=== PATIENT | female | born 1955 | race Caucasian/White ===

== ENCOUNTER 2018-01-10 11:26 | Observation (INO) | payer OTHER ==
[~2018-01-10 11:26] MED LIST: CEFTRIAXONE/SWI 1gm 1 GM/10 ML SYR IVP SCH
[2018-01-10] MEDS ORDERED: IPRATROPIUM BROM 0.5MG/2.5ML ONE ×2 (14:08→19:17)
[2018-01-10] MEDS ORDERED: ALBUTEROL 2.5 MG/3 ML NEB SOL ONE ×2 (14:08→19:17)
[2018-01-10] MEDS ORDERED: predniSONE 20 MG TAB ONE (14:41)
--- NOTE | 2018-01-10 15:00 | RAD REPORT ---
EXAM DESCRIPTION: RAD - Chest Single View - 01/10/2018 2:48 pm CLINICAL HISTORY: Cough COMPARISON: 09/29/2010 FINDINGS: Portable technique limits examination quality. Mild interstitial pulmonary edema is noted. The heart is mildly prominent size. No displaced fracture s. IMPRESSION: Mild CHF/ volume overload.
[2018-01-10 15:29] LABS: Absolute Lymphocytes (CBC) 1.3 K/uL (0.7-4.9); Absolute Monocytes 0.5 K/uL (0.1-1.3); Absolute Neutrophil 3.2 K/uL (1.8-8.0); Basophils % 0.7 % (0-1.3); Eosinophils % 0.7 % (0-4.4); Hematocrit 36.2 % (36.0-45.0); Lymphocytes % 25.5 % (15.3-44.8); MCH 26.8 pg (27.0-35.0); MCV 84.7 fL (80-100); MPV 7.8 fL (7.6-11.3); Monocytes % 9.7 % (3.3-12.3); RBC Red Blood Cell Count 4.27 M/uL (3.86-4.86)
--- NOTE | 2018-01-10 15:37 | EKG ---
Test Date: 2018-01-10 Test Time: 15:30:54 [place] Worker: PEPE MEASUREMENT RESULTS: Intervals: Rate: 98 NC: 136 QRSD: 136 QT: 366 QTc: 467 [place]: P: 63 NC: 136 QRS: -2 T: 18 INTERPRETIVE STATEMENTS: Normal sinus rhythm Right bundle branch block Abnormal ECG No previous ECG available for comparison Electronically Signed On 01-10-18 15:36:19 CDT by Curt López
[2018-01-10] MEDS ORDERED: FUROSEMIDE 20 MG/ 2ML VIAL ONE (15:38)
[2018-01-10 15:44] LABS: Protime INR 1.08
[2018-01-10 16:06] LABS: Potassium 4.3 mEq/L (3.6-5.0)
--- NOTE | 2018-01-10 16:20 | EDPHYS ---
Physician Documentation [facility] Name: Jackie Menezes Age: 62 yrs Sex: Female : 1955 Arrival Date: 01/10/2018 Time: 11:27 Bed 28 Private MD: ED Physician Jayesh Gil HPI: 01/10 17:02 This 62 yrs old Female presents to ER via Ambulatory with complaints of LOW gs OXYGEN (92). 17:02 The patient has shortness of breath at rest. Onset: The symptoms/episode began/occurred gs 5 day(s) ago, and became worse and became persistent. Duration: The symptoms are continuous. The patient's shortness of breath is aggravated by exertion. Associated signs and symptoms: Pertinent positives: non-productive cough, Pertinent negatives: chest pain, fever. Severity of symptoms: At their worst the symptoms were severe in the emergency department the symptoms are unchanged. The patient has not experienced similar symptoms in the past. The patient has not recently seen a physician. Historical: - Allergies: 11:53 No Known Allergies; lk1 - PMHx: 11:53 Diabetes - NIDDM; Hypertension; High Cholesterol; lk1 - PSHx: 11:53 Gastric Bypass; Hysterectomy; lk1 - Immunization history:: Adult Immunizations up to date. - Social history:: Smoking status: Patient uses tobacco products, smokes one pack cigarettes per day. ROS: 17:02 All other systems are negative. gs Exam: 15:34 ECG was reviewed by the Attending Physician. gs 17:02 Head/Face: Normocephalic, atraumatic. Eyes: Pupils equal round and reactive to light, gs extra-ocular motions intact. Lids and lashes normal. Conjunctiva and sclera are non-icteric and not injected. Cornea within normal limits. Periorbital areas with no swelling, redness, or edema. ENT: Nares patent. No nasal discharge, no septal abnormalities noted. Tympanic membranes are normal and external auditory canals are clear. Oropharynx with no redness, swelling, or masses, exudates, or evidence of obstruction, uvula midline. Mucous membranes moist. Neck: Trachea midline, no thyromegaly or masses palpated, and no cervical lymphadenopathy. Supple, full range of motion without nuchal rigidity, or vertebral point tenderness. No Meningismus. Chest/axilla: Normal chest wall appearance and motion. Nontender with no deformity. No lesions are appreciated. 17:02 Abdomen/GI: Soft, non-tender, with normal bowel sounds. No distension or tympany. No guarding or rebound. No evidence of tenderness throughout. Back: No spinal tenderness. No costovertebral tenderness. Full range of motion. Skin: Warm, dry with normal turgor. Normal color with no rashes, no lesions, and no evidence of cellulitis. MS/ Extremity: Pulses equal, no cyanosis. Neurovascular intact. Full, normal range of motion. Neuro: Awake and alert, GCS 15, oriented to person, place, time, and situation. Cranial nerves II-XII grossly intact. Motor strength 5/5 in all extremities. Sensory grossly intact. Cerebellar exam normal. Normal gait. 17:02 Constitutional: The patient appears alert, awake. 17:02 Cardiovascular: Rate: tachycardic, Rhythm: regular, Pulses: no pulse deficits are appreciated. 17:02 Respiratory: mild respiratory distress is noted, Respirations: tachypnea, Breath sounds: rhonchi, that are severe, are heard diffusely. 17:02 Musculoskeletal/extremity: Circulation is intact in all extremities. Edema, is not appreciated. Vital Signs: 11:54 BP 133 / 80; Pulse 102; Resp 20; Temp 97.2(TE); Pulse Ox 92% on R/A; Weight 142.43 kg lk1 (R); Height 5 ft. 8 in. (172.72 cm) (R); Pain 0/10; 13:55 BP 155 / 87; Pulse 101; Resp 20; Pulse Ox 89% on R/A; tl3 13:58 Pulse Ox 96% on 2 lpm NC; tl3 14:29 BP 128 / 78; Pulse 100; Resp 18; Pulse Ox 99% on 8% Nebulizer Mask; tl3 15:31 BP 135 / 80; Pulse 100; Resp 24; Pulse Ox 97% on 2 lpm NC; tl3 16:03 BP 145 / 70; Pulse 103; Resp 22; Pulse Ox 96% on 2 lpm NC; tl3 18:01 BP 139 / 96; Pulse 106; Resp 22; Pulse Ox 94% on 2 lpm NC; tl3 11:54 Body Mass Index 47.74 (142.43 kg, 172.72 cm) [facility] MDM: 14:05 Patient medically screened. gs 17:02 Differential diagnosis: CHF exacerbation, Myocardial Infarction pneumonia, pulmonary gs edema, Pulmonary Embolism. Data reviewed: vital signs, nurses notes, and as a result, I will admit patient. 01/10 14:29 Order name: Basic Metabolic Panel; Complete Time: 16:38 01/10 14:29 Order name: BNP; Complete Time: 16:38 01/10 14:29 Order name: CBC with Diff; Complete Time: 15:57 01/10 14:29 Order name: PT-INR; Complete Time: 15:57 01/10 14:29 Order name: Troponin (emerg Dept Use Only); Complete Time: 15:57 01/10 18:07 Order name: Urine Dipstick--Ancillary (enter results) 01/10 14:29 Order name: XRAY Chest (1 view); Complete Time: 15:10 01/10 16:12 Order name: CT Chest For PE Angio 01/10 17:10 Order name: CT; Complete Time: 19:01 EDDC 01/10 18:21 Order name: Urine Dipstick-Ancillary; Complete Time: 19:01 [facility] 01/10 14:29 Order name: EKG; Complete Time: 14:30 01/10 14:29 Order name: Cardiac monitoring; Complete Time: 14:30 01/10 14:29 Order name: EKG - Nurse/Tech; Complete Time: 15:30 01/10 14:29 Order name: IV Saline Lock; Complete Time: 15:28 01/10 14:29 Order name: Labs collected and sent; Complete Time: 15:28 01/10 14:29 Order name: O2 Per Protocol; Complete Time: 14:30 01/10 14:29 Order name: O2 Sat Monitoring; Complete Time: 15:28 01/10 14:29 Order name: Urine Dipstick-Ancillary (obtain specimen); Complete Time: 15:52 gs EC:34 Rate is 98 beats/min. Rhythm is regular. NH interval is normal. QRS interval is gs prolonged. No Q waves. T waves are Normal. No ST changes noted. Clinical impression: Abnormal EKG without significant change. Interpreted by me. Administered Medications: 14:15 Drug: Albuterol 2.5 mg Route: Inhalation; tl3 15:29 Follow up: Response: No adverse reaction tl3 14:15 Drug: AtroVENT Aerosol 0.5 mg Route: Inhalation; tl3 15:28 Drug: predniSONE 40 mg Route: PO; tl3 15:29 Follow up: Response: No adverse reaction tl3 15:51 Drug: Lasix 20 mg Route: IVP; Site: left wrist; tl3 16:00 Follow up: Response: No adverse reaction tl3 Disposition: 17:02 Critical Care:. Disposition: 01/10/18 16:20 Hospitalization ordered by Austen Gerard for Inpatient Admission. Preliminary diagnosis are Hypoxemia, Systolic (congestive) heart failure. - Bed requested for Telemetry/MedSurg (Inpatient). - Status is Inpatient Admission. tl3 - Condition is Stable. - Problem is new. - Symptoms have improved. UTI on Admission? No Critical care time excluding procedures: 17:02 Critical care time: Bedside Care: 10 minutes, Consultation: 10 minutes, Family gs Intervention: 10 minutes. Total time: 30 minutes Signatures: Dispatcher [employer] EDMS Graciela Bender Sabrina Knapp RN RN lk1 Jayesh Gil MD MD Claudia Garcia RN RN tl3 Corrections: (The following items were deleted from the chart) 16:03 15:58 Labs - recollect needed ordered. bd tl3 16:29 16:20 Hospitalization Ordered by Meaghan Brown MD for Inpatient Admission. Preliminary gs diagnosis is Hypoxemia; Systolic (congestive) heart failure. Bed requested for Telemetry/MedSurg (Inpatient). Status is Inpatient Admission. Condition is Stable. Problem is new. Symptoms have improved. UTI on Admission? No. gs 17:42 16:29 01/10/2018 16:20 Hospitalization Ordered by Austen Gerard MD for Inpatient bd Admission. Preliminary diagnosis is Hypoxemia; Systolic (congestive) heart failure. Bed requested for Telemetry/MedSurg (Inpatient). Status is Inpatient Admission. Condition is Stable. Problem is new. Symptoms have improved. UTI on Admission? No. gs 19:46 17:42 01/10/2018 16:20 Hospitalization Ordered by Austen Gerard MD for Inpatient tl3 Admission. Preliminary diagnosis is Hypoxemia; Systolic (congestive) heart failure. Bed requested for Telemetry/MedSurg (Inpatient). Status is Inpatient Admission. Condition is Stable. Problem is new. Symptoms have improved. UTI on Admission? No. bd
--- NOTE | 2018-01-10 16:20 | ER ---
Nurse's Notes [facility] Name: Jackie Menezes Age: 62 yrs Sex: Female : 1955 Arrival Date: 01/10/2018 Time: 11:27 Bed 28 Private MD: Diagnosis: Hypoxemia;Systolic (congestive) heart failure Presentation: 01/10 11:51 Presenting complaint: Patient states: I have chest congestion and its feeling hard to lk1 breath. It's been starting about a week, but gotten worse in the last 2 days. Transition of care: patient was not received from another setting of care. Onset of symptoms was January 05, 2018. Initial Sepsis Screen: Does the patient meet any 2 criteria? No. Patient's initial sepsis screen is negative. Does the patient have a suspected source of infection? No. Patient's initial sepsis screen is negative. Care prior to arrival: None. 11:51 Method Of Arrival: Ambulatory lk1 11:51 Acuity: ROXY 3 lk1 Triage Assessment: 11:53 General: Appears in no apparent distress. Behavior is calm, cooperative, appropriate lk1 for age. Pain: Denies pain. Respiratory: Reports shortness of breath on exertion cough that is productive, yellow green sputum x 2 days Airway Respiratory effort is even, unlabored, Respiratory pattern is regular, symmetrical. Historical: - Allergies: 11:53 No Known Allergies; lk1 - PMHx: 11:53 Diabetes - NIDDM; Hypertension; High Cholesterol; lk1 - PSHx: 11:53 Gastric Bypass; Hysterectomy; lk1 - Immunization history:: Adult Immunizations up to date. - Social history:: Smoking status: Patient uses tobacco products, smokes one pack cigarettes per day. Screenin:58 Abuse screen: Denies threats or abuse. Nutritional screening: No deficits noted. tl3 Tuberculosis screening: No symptoms or risk factors identified. Fall Risk None identified. Assessment: 13:55 General: Appears uncomfortable, obese, well groomed, well developed, well nourished, tl3 Behavior is calm, cooperative, appropriate for age. Pain: Denies pain. Neuro: Level of Consciousness is awake, alert, obeys commands, Oriented to person, place, time, situation, Appropriate for age. Cardiovascular: Heart tones S1 S2 present Patient's skin is warm and dry. Respiratory: Airway is patent Trachea midline Respiratory effort is labored, Respiratory pattern is symmetrical, Breath sounds are diminished Breath sounds with wheezes in left lower lobe, right lower lobe, left posterior lower lobe, right posterior middle lobe and right posterior lower lobe. Respiratory: Reports shortness of breath at rest on exertion cough that is productive. Respiratory: Reports SOB for a couple of days. GI: No signs and/or symptoms were reported involving the gastrointestinal system. : No signs and/or symptoms were reported regarding the genitourinary system. EENT: No signs and/or symptoms were reported regarding the EENT system. Derm: No signs and/or symptoms reported regarding the dermatologic system. Musculoskeletal: No signs and/or symptoms reported regarding the musculoskeletal system. 14:19 Reassessment: Dr Gil at bedside for assessment. tl3 16:03 Reassessment: Patient appears in no apparent distress at this time. No changes from tl3 previously documented assessment. Patient and/or family updated on plan of care and expected duration. Pain level reassessed. Patient is alert, oriented x 3, equal unlabored respirations, skin warm/dry/pink. pt dropped down to 88 % on room air after completion of neb, o2 at 2 L/M reapplied O2 sat increased to 95%. 18:01 Reassessment: Patient appears in no apparent distress at this time. No changes from tl3 previously documented assessment. Patient and/or family updated on plan of care and expected duration. Pain level reassessed. Patient is alert, oriented x 3, equal unlabored respirations, skin warm/dry/pink. pt ambulated to restroom, urine obtained, pt extremely winded after walking to and from the restroom., O2 Sats dropped to 85% , O2 replaced and sats went up to 93-95%. Vital Signs: 11:54 BP 133 / 80; Pulse 102; Resp 20; Temp 97.2(TE); Pulse Ox 92% on R/A; Weight 142.43 kg lk1 (R); Height 5 ft. 8 in. (172.72 cm) (R); Pain 0/10; 13:55 BP 155 / 87; Pulse 101; Resp 20; Pulse Ox 89% on R/A; tl3 13:58 Pulse Ox 96% on 2 lpm NC; tl3 14:29 BP 128 / 78; Pulse 100; Resp 18; Pulse Ox 99% on 8% Nebulizer Mask; tl3 15:31 BP 135 / 80; Pulse 100; Resp 24; Pulse Ox 97% on 2 lpm NC; tl3 16:03 BP 145 / 70; Pulse 103; Resp 22; Pulse Ox 96% on 2 lpm NC; tl3 18:01 BP 139 / 96; Pulse 106; Resp 22; Pulse Ox 94% on 2 lpm NC; tl3 11:54 Body Mass Index 47.74 (142.43 kg, 172.72 cm) lk1 ED Course: 11:27 Patient arrived in ED. sb2 11:52 Triage completed. lk1 11:56 Arm band placed on right wrist. lk1 13:36 Jayesh Gil MD is Attending Physician. gs 13:41 Claudia Garcia, RAQUEL is Primary Nurse. tl3 13:58 Patient has correct armband on for positive identification. Placed in gown. Bed in low tl3 position. Call light in reach. Side rails up X 1. Adult w/ patient. Pulse ox on. NIBP on. 13:58 No provider procedures requiring assistance completed. Initial Neb Treatment Given as tl3 ordered Patient was instructed and evaluated on procedure. 14:42 X-ray(s) taken. tl3 14:46 X-ray completed. Portable x-ray completed in exam room. Patient tolerated procedure jb2 well. 14:47 XRAY Chest (1 view) In Process Unspecified. EDMS 15:30 Inserted saline lock: 20 gauge in left wrist, using aseptic technique. Blood collected. tl3 15:38 EKG done, by property technician. reviewed by Jayesh Gil MD. dt2 16:[address] sw 16:19 Meaghan Brown MD is Hospitalizing Provider. gs 16:29 Austen Gerard MD is Hospitalizing Provider. gs 16:54 CT completed. Patient tolerated procedure well. Patient moved back from CT. sw 19:29 Patient admitted, IV remains in place. tl3 19:46 Urine Dipstick--Ancillary (enter results) Sent. tl3 19:46 CT Chest For PE Angio Sent. tl3 Administered Medications: 14:15 Drug: Albuterol 2.5 mg Route: Inhalation; tl3 15:29 Follow up: Response: No adverse reaction tl3 14:15 Drug: AtroVENT Aerosol 0.5 mg Route: Inhalation; tl3 15:28 Drug: predniSONE 40 mg Route: PO; tl3 15:29 Follow up: Response: No adverse reaction tl3 15:51 Drug: Lasix 20 mg Route: IVP; Site: left wrist; tl3 16:00 Follow up: Response: No adverse reaction tl3 Outcome: 16:20 Decision to Hospitalize by Provider. 19:28 Admitted to Med/surg accompanied by tech, via wheelchair, with chart, Report called to tl3 Lashay Nix RN 19:28 Condition: stable 19:28 Instructed on the need for admit, Demonstrated understanding of instructions. 19:46 Patient left the ED. tl3 Signatures: Dispatcher [employer] EDMS Eudard Murry jbKat Au Leah, RN RN lk1 Jayesh Gil MD MD Patricia Peraza2 Claudia Garcia RN RN tl3 Brianna Gaffney2
[2018-01-10] MEDS ORDERED: ACETAMINOPHEN 500 MG TAB PO PRN (16:51)
[2018-01-10] MEDS ORDERED: ONDANSETRON 4 MG/2 ML VIAL IV PRN (16:51)
[2018-01-10] MEDS ORDERED: D50W 25 GM/50 ML SYRINGE IV PRN (16:54)
[2018-01-10] MEDS ORDERED: GLUCAGON 1 MG/VIAL IM PRN (16:54)
--- NOTE | 2018-01-10 17:09 | RAD REPORT ---
EXAM DESCRIPTION: CT - Chest For Pe Angio - 01/10/2018 4:54 pm CLINICAL HISTORY: Chest pain and shortness of breath x2 weeks COMPARISON: None. TECHNIQUE: Dynamically enhanced axial 3 mm thick images of the chest were obtained during administra tion of <100> mL Isovue 370 IV contrast. Coronal and oblique reconstruction images were generated and reviewed. Exam utilizes a protocol for optimal evaluation of pulmonary arterial tree. All CT scans are performed using dose optimization technique as appropriate and may include automated exposure control or mA/KV adjustment according to patient size. FINDINGS: The opacification of pulmonary arteries is suboptimal. A pulmonary embolus is not seen. A thoracic aortic aneurysm is not noted. A pleural effusion is not seen. A pericardial effusion is not seen. Mild ground-glass opacities are present within the upper lobes bilaterally. Mild to moderate tree-in- bud opacities within the lingula are seen. Mild bilateral hilar and mediastinal lymphadenopathy is present A mucus plug is present within the trachea IMPRESSION: No gross evidence for a pulmonary lymphadenopathy is present. Mild ground-glass opacities within the upper lobes and a mild to moderate tree-in-bud opacities withi n the lingula likely indicating an atypical infection Mucus plug within the trachea Mild hilar and mediastinal lymphadenopathy most likely is reactive in nature. Follow up CT in 3 month s is recommended to assess stability/resolution
[2018-01-10 18:20] LABS: Urine Blood NEGATIVE (NEG); Urine Glucose NEGATIVE (NEG); Urine Protein NEGATIVE (NEG); Urine Specific Gravity <1.005 (1.005-1.030); Urine pH 5.5 (5.0-7.0)
[2018-01-10] MEDS ORDERED: NA CHLORIDE 0.9% 250 ML ONE (19:51)
[2018-01-10] MEDS: IPRATROPIUM BROM 0.5MG/2.5ML NEB SCH (19:57)
[2018-01-10] MEDS: ALBUTEROL 2.5 MG/3 ML NEB SOL NEB SCH (19:57)
[2018-01-10] MEDS: INSULIN -REGULAR HUMAN 50 UNIT/0.5 ML ML SQ SCH (20:48)
[2018-01-10] MEDS: FUROSEMIDE 40 MG/4 ML VIAL IV SCH (21:12)
[2018-01-10] MEDS: ENOXAPARIN 40 MG/0.4 ML SQ SCH (21:12)
[2018-01-10] MEDS: AZITHROMYCIN IV 500 MG in NA CHLORIDE 0.9% 250 ML IVPB SCH (21:13)
[2018-01-10] MEDS: METOPROLOL TAR 50 MG TAB PO SCH (21:14)
[2018-01-10 22:25] LABS: Urine Appearance CLEAR; Urine Bilirubin NEGATIVE (NEG); Urine Blood NEGATIVE (NEG); Urine Color YELLOW; Urine Glucose NEGATIVE (NEG); Urine Protein NEGATIVE (NEG); Urine pH 6.5 (5.0-7.0)
[2018-01-10 22:28] LABS: Urine Microscopic Reflex NO UMIC
--- NOTE | 2018-01-10 23:58 | HP ---
Date of Admission: 01/10/2018 Primary Care Physician: Dr. Garcia. Code Status: Full. Chief Complaint: Shortness of breath, cough. History Of Present Illness: The patient is a 62-year-old female with past medical history of diabete s, hypertension, hyperlipidemia, and morbid obesity, who comes in to the hospital after progressive s hortness of breath which started suddenly. The patient, of note, had a flight from [place], which w as 4-1/2 hours. She has developed some cough and some subjective chills, but no fevers. No ill cont acts. The patient has had some mucus come up. The patient denies any leg swelling. No nausea, vomi ting, or chest pain. The patient came in to the ER for further evaluation. Upon arrival, her workup revealed normal white count. Troponin was negative. Her chest x-ray did show mild interstitial pul monary edema. The patient was tachycardic and was felt to be at risk for pulmonary embolism. Theref ore, CT angio was done, which was negative for pulmonary embolism. The patient was then referred for admission. When seen in the ER, the patient was awake, alert, oriented x3, in some mild respiratory distress on supplemental oxygen. Past Medical History: Diabetes mellitus type 2, hypertension, and hyperlipidemia. Surgical History: Gastric bypass, hysterectomy, cholecystectomy. Allergies: NO KNOWN DRUG ALLERGIES. Medications: List reviewed. Social History: The patient smokes a pack and a half per day for several years. No alcohol. No ill icit drug use. The patient is . Family History: The patient has a strong history of blood clots. Both the brother, dad, and sister have had blood clots. Review of Systems: An 11-point system reviewed, negative except as per HPI. Physical Examination: Vital Signs: Blood pressure 133/80, pulse 102, respirations 20, temperature 97.2, and O2 of 92% on r oom air. General: Awake, alert, and oriented x3. Some mild distress due to shortness of breath. Morbidly ob chepe female, ill-appearing. HEENT: Normocephalic, atraumatic. PERRLA. EOMI. Moist mucous membranes. Oropharynx is clear. No rmal dentition. Conjunctiva is anicteric. Neck: Supple. Trachea midline. CV: S1, S2. Sinus tachycardia. Peripheral pulses present. No murmurs. Respiratory: Diminished breath sounds. Some rhonchi heard. Mild expiratory wheezing. The patient is tachypneic. No use of accessory muscles. Gastrointestinal: Abdomen is soft, nontender, nondistended. Positive bowel sounds. No guarding or rigidity. No palpable masses. Extremities: No clubbing or cyanosis; 1+ pedal edema. No calf tenderness. Neurologic: Cranial nerves 2 through 12 are intact grossly. Muscle strength is 5/5, bilateral upper and lower extremities. Sensation intact to light touch. Speech is normal. Skin: No rashes. Normal skin turgor. Psychiatric: Mood is okay. Affect is full. Insight and judgment are good. Laboratory Data: Sodium 134, potassium 4.3, chloride 99, CO2 of 26, BUN 12, creatinine 0.78, glucose 107, and calcium 8.9. Troponin less than 0.03. BNP less than 10. INR 1.08. WBC 5.1, H and H 11.4 and 36.2, and platelets 320. Neutrophils 63%. Chest x-ray shows mild CHF, volume overload. CT ang io chest shows no gross evidence for pulmonary lymphadenopathy is present. Mild ground-glass opaciti es within the upper lobes and [id number] tree-in-bud opacities within the lingula, likely indic ating an atypical infection. Mucus plug within the trachea. Mild hilar and mediastinal lymphadenopa thy is most likely reactive in nature. Followup CT in 3 months is recommended to assess stability. Pulmonary embolus is not seen. EKG shows normal sinus rhythm, right bundle-branch block. Rate of 98 . Assessment And Plan: A 62-year-old female with; 1.Shortness of breath, likely secondary to acute congestive heart failure and pneumonia. 2.Pneumonia, bilateral upper lobes, likely atypical. We will start on IV antibiotics. Obtain blood cultures and sputum cultures. 3.Acute chronic obstructive pulmonary disease exacerbation. We will continue DuoNeb and steroids. We will continue with supplemental oxygen. 4.Acute respiratory distress on 3 L of O2 via nasal cannula. CT angio is negative for pulmonary emb olism. 5.Right bundle-branch block. 6.Morbid obesity. 7.Diabetes mellitus type 2, non-insulin requiring, with hyperglycemia. We will start on sliding sca le insulin. 8.Hyperlipidemia. 9.Essential hypertension. We will resume home medications as appropriate. 10.Nicotine dependence with cigarette smoking. Counseled. Plan is to admit the patient to Med-Surg, place as inpatient. /FRANCK Voice ID: [id number]
[2018-01-11] MEDS: METHYLPREDNISOLONE 40 MG INJ IV SCH ×2 (00:25→08:52)
[2018-01-11] MEDS ORDERED: TRAZODONE 50 MG TABLET PO ONE (00:36)
[2018-01-11] MEDS: IPRATROPIUM BROM 0.5MG/2.5ML NEB SCH ×4 (01:08→19:48)
[2018-01-11] MEDS: ALBUTEROL 2.5 MG/3 ML NEB SOL NEB SCH ×4 (01:08→19:48)
[2018-01-11 04:48] LABS: Absolute Lymphocytes (CBC) 0.8 K/uL (0.7-4.9); Absolute Monocytes 0.2 K/uL (0.1-1.3); Absolute Neutrophil 4.8 K/uL (1.8-8.0); Basophils % 0.3 % (0-1.3); Hematocrit 34.7 % (36.0-45.0); Lymphocytes % 13.6 % (15.3-44.8); MCH 27.2 pg (27.0-35.0); MCV 84.3 fL (80-100); MPV 7.6 fL (7.6-11.3); Monocytes % 3.6 % (3.3-12.3); RBC Red Blood Cell Count 4.12 M/uL (3.86-4.86)
[2018-01-11 05:26] LABS: ALT/SGPT 22 IU/L (10-60); AST/SGOT 20 IU/L (10-42); Albumin 3.8 g/dL (3.2-5.5); BUN Blood Urea Nitrogen 15 mg/dL (6-20); Bicarbonate 28 mEq/L (21-31); Bilirubin Total 0.8 mg/dL (0.3-1.2); Glucose Level 149 mg/dL (65-120); Magnesium 1.7 mg/dL (1.8-2.5); Potassium 4.7 mEq/L (3.6-5.0); Protein, Total 7.2 g/dL (6.0-8.3); Sodium Level 133 mEq/L (135-145)
[2018-01-11] MEDS ORDERED: MAGNESIUM SULFATE 1 gm IVPB 1 GM/100 ML BAG IV ONE (05:31)
[2018-01-11 05:47] LABS: Alkaline Phosphatase 57 IU/L (42-121)
[2018-01-11] MEDS: INSULIN -REGULAR HUMAN 50 UNIT/0.5 ML ML SQ SCH ×4 (07:30→20:31)
[2018-01-11] MEDS: AZITHROMYCIN IV 500 MG in NA CHLORIDE 0.9% 250 ML IVPB SCH (08:50)
[2018-01-11] MEDS: LISINOPRIL 20 MG TAB PO SCH (08:50)
[2018-01-11] MEDS: FUROSEMIDE 40 MG/4 ML VIAL IV SCH ×2 (08:51→17:17)
[2018-01-11] MEDS: METOPROLOL TAR 50 MG TAB PO SCH ×2 (08:51→20:30)
[2018-01-11] MEDS: ENOXAPARIN 40 MG/0.4 ML SQ SCH (08:52)
[2018-01-11] MEDS: DULOXETINE 30 MG CAP PO SCH (09:00)
[2018-01-11] MEDS: ARIPiprazole 5 MG TAB PO SCH (09:11)
[2018-01-11] MEDS: FENOFIBRATE 160 MG TAB PO SCH (09:11)
[2018-01-11] MEDS: LORATADINE 10 MG TAB PO SCH (09:11)
--- NOTE | 2018-01-11 11:02 | P.CNS ---
Date of Consult: 01/11/18 Chief Complaint: Shortness of breath History of Present Illness: Patient is 62 years of age a very heavy smoker 1 pack a day has been having problems since mother's Day a week ago complaining of worsening shortness of breath cough congestion apparently she flew to [place] to see a grand K and started having worsening problems no prior diagnosis of COPD although she has Advair at home no cardiac history doing a little better has some cough but no fever chills or chest pain he only doctors she she has doctor mccann in [place] the psychiatrist Allergies No Known Allergies Allergy (Verified 01/10/18 20:19) Home Medications: Aripiprazole [Abilify*] 2.5 mg PO DAILY 01/10/18 Duloxetine [Cymbalta *] 60 mg PO DAILY 01/10/18 Fenofibrate [Tricor*] 160 mg PO DAILY 01/10/18 Lisinopril [Prinivil*] 20 mg PO DAILY 01/10/18 Loratadine [Allergy Relief] 10 mg PO DAILY 01/10/18 Metformin HCl [Glucophage*] 500 mg PO BID 01/10/18 Pnv with Ca#74/Iron/Folic Acid [ Low Iron Tablet] 1 tab PO DAILY Quetiapine [Seroquel*] 400 mg PO BEDTIME 01/10/18 - Past Medical/Surgical History Diabetic: Yes -: HTN -: HLD -: BIPOLAR -: NIDDM -: HYSTERECTOMY -: GASTRIC BYPASS -: CHOLECYSTECTOMY - Family History Father Medical History: Stroke Brother Notes: DVT - Social History Smoking Status: Current every day smoker Alcohol use: No CD- Drugs: No Caffeine use: Yes Review of Systems 10-point ROS is otherwise unremarkable Respiratory: Cough, Shortness of Breath Physical Examination Temp Pulse Resp BP Pulse Ox 97.2 F 83 20 140/75 99 01/11/18 08:00 01/11/18 08:51 01/11/18 08:00 01/11/18 08:51 01/11/18 08:00 General: Alert, Oriented x3 Respiratory: Expiratory wheezes Cardiovascular: No edema, Normal S1 S2 Gastrointestinal: Normal bowel sounds, Soft and benign, Non-distended Laboratory Data (last 24 hrs) 01/10/18 15:05: PT 12.7 H, INR 1.08 01/10/18 15:05: WBC 5.1, Hgb 11.4 L, Hct 36.2, Plt Count 320 01/10/18 15:05: B-Natriuretic Peptide < 10 01/10/18 15:05: Sodium 134 L, Potassium 4.3, BUN 12, Creatinine 0.78, Glucose 107 - Problems (1) COPD exacerbation Current Visit: Yes Status: Acute Plan: Patient is 62 years of age a strongly suspect that she has COPD exacerbation a very heavy smoker has dyspnea on exertion became worse over the past week chest x-rays CT scan nonspecific changes mild hilar and mediastinal adenopathy labs unremarkable sat is 94% on 2 L I have added some steroids change house attendant to p.o. Zithromax Dc Lasix patient's BNP is negative she does have Advair at home as been console not this
--- NOTE | 2018-01-11 12:28 | PN ---
Date of Progress Note: 01/11/2018 Subjective: The patient seen and examined. Chart reviewed and case discussed with RN. The patient states her breathing is slightly better, still having some wheezing. Review of Systems: Negative except as above. Medications: Reviewed. Physical Examination: Vital Signs: Temperature 97.2, heart rate 83, blood pressure 140/75, respirations 20, and O2 99% on 2 L via nasal cannula. General: Awake, alert, oriented x3, in no acute distress. Elderly female, obese, BMI 46. CV: S1, S2. No murmurs. Regular rate and rhythm. Peripheral pulses present. Respiratory: Diminished breath sounds. Wheezing heard throughout. Some rhonchi as well. No use of accessory muscles. Gastrointestinal: Abdomen is soft, nontender, nondistended. Positive bowel sounds. Extremities: No clubbing or cyanosis. Pedal edema is 1+. Neurologic: Nonfocal. Laboratory Data: Sodium 133, potassium 4.7, chloride 96, CO2 of 28, BUN 15, creatinine 0.65, glucose 149, calcium 8.8, magnesium 1.7. WBC 5.8, H and H 11.2, 34.7, and platelets 314, neutrophils 82%. Blood cultures pending. Assessment And Plan: A 62-year-old female with: 1.Shortness of breath, likely secondary to acute congestive heart failure and pneumonia. 2.Pneumonia, bilateral upper lobes, atypical. Continue IV antibiotics. Sputum culture and blood cu lture pending. 3.Acute chronic obstructive pulmonary disease exacerbation. We will continue nebulizers and steroid s. Currently on supplemental oxygen. 4.Acute respiratory distress on 3 L via nasal cannula. We will attempt to wean and ambulate. CT an evelina is negative for pulmonary embolism. 5.Right bundle branch block. 6.Morbid obesity, BMI 46. 7.Diabetes mellitus type 2 non-insulin requiring with hyperglycemia. We will continue sliding scale insulin. 8.Hyperlipidemia, mixed. Continue home medications. 9.Essential hypertension stable on medications. 10.Nicotine dependence with cigarette smoking. Counseled. Plan: Follow up with Pulmonology input. /FRANCK Voice ID: [id number] Report ID: [id number]
[2018-01-11] MEDS: predniSONE 20 MG TAB PO SCH ×2 (12:38→20:30)
[2018-01-11] MEDS ORDERED: QUETIAPINE 100MG TAB PO SCH (21:00)
[2018-01-12] MEDS: IPRATROPIUM BROM 0.5MG/2.5ML NEB SCH ×3 (02:47→13:34)
[2018-01-12] MEDS: ALBUTEROL 2.5 MG/3 ML NEB SOL NEB SCH ×3 (02:47→13:35)
[2018-01-12 05:43] LABS: ALT/SGPT 22 IU/L (10-60); AST/SGOT 19 IU/L (10-42); Albumin 3.8 g/dL (3.2-5.5); Alkaline Phosphatase 54 IU/L (42-121); BUN Blood Urea Nitrogen 22 mg/dL (6-20); Bicarbonate 33 mEq/L (21-31); Bilirubin Total < 0.2 mg/dL (0.3-1.2); Glucose Level 135 mg/dL (65-120); Magnesium 1.9 mg/dL (1.8-2.5); Potassium 4.2 mEq/L (3.6-5.0); Protein, Total 7.2 g/dL (6.0-8.3); Sodium Level 135 mEq/L (135-145)
[2018-01-12 05:49] LABS: Absolute Lymphocytes (CBC) 1.7 K/uL (0.7-4.9); Absolute Monocytes 0.7 K/uL (0.1-1.3); Absolute Neutrophil 7.5 K/uL (1.8-8.0); Basophils % 0.2 % (0-1.3); Hematocrit 35.9 % (36.0-45.0); Lymphocytes % 17.1 % (15.3-44.8); MCH 27.4 pg (27.0-35.0); MCV 84.4 fL (80-100); Monocytes % 7.4 % (3.3-12.3); RBC Red Blood Cell Count 4.26 M/uL (3.86-4.86)
[2018-01-12] MEDS: INSULIN -REGULAR HUMAN 50 UNIT/0.5 ML ML SQ SCH ×2 (07:30→11:30)
[2018-01-12] MEDS ORDERED: AZITHROMYCIN 250 MG TAB PO SCH (09:00)
[2018-01-12] MEDS: ARIPiprazole 5 MG TAB PO SCH (09:13)
[2018-01-12] MEDS: FUROSEMIDE 40 MG/4 ML VIAL IV SCH (09:13)
[2018-01-12] MEDS: predniSONE 20 MG TAB PO SCH (09:14)
[2018-01-12] MEDS: LORATADINE 10 MG TAB PO SCH (09:14)
[2018-01-12] MEDS: LISINOPRIL 20 MG TAB PO SCH (09:14)
[2018-01-12] MEDS: METOPROLOL TAR 50 MG TAB PO SCH (09:17)
[2018-01-12] MEDS: ENOXAPARIN 40 MG/0.4 ML SQ SCH (09:18)
[2018-01-12] MEDS: DULOXETINE 30 MG CAP PO SCH (09:18)
[2018-01-12] MEDS: FENOFIBRATE 160 MG TAB PO SCH (09:19)
--- NOTE | 2018-01-12 10:56 | RAD REPORT ---
EXAM DESCRIPTION: Day Single View01/12/2018 6:35 am CLINICAL HISTORY: sob COMPARISON: January 10 FINDINGS: Mild bilateral pulmonary opacities are unchanged. The heart is borderline enlarged IMPRESSION: No acute abnormalities displayed
--- NOTE | 2018-01-12 13:50 | DS ---
Date of Discharge: 01/12/2018 Consultants: Dr. Melendez with Pulmonology. Admitting Diagnoses: 1.Shortness of breath. 2.Bilateral upper lobe pneumonia, atypical. 3.Acute chronic obstructive pulmonary disease exacerbation. 4.Acute respiratory distress. 5.Right bundle branch block. 6.Morbid obesity, BMI of 45. 7.Diabetes mellitus type 2, non-insulin requiring with hyperglycemia. 8.Hyperlipidemia. 9.Essential hypertension. 10.Nicotine dependence. Discharge Diagnoses: 1.Shortness of breath, resolved. 2.Acute respiratory distress, weaned off oxygen. 3.Bilateral upper lobe pneumonia. Continue with azithromycin. 4.Acute chronic obstructive pulmonary disease exacerbation, improving. 5.Right bundle branch block. 6.Morbid obesity, BMI of 45. 7.Diabetes mellitus type 2, insulin requiring with hyperglycemia. 8.Hyperlipidemia, mixed. 9.Essential hypertension, stable. 10.Nicotine dependence with cigarette smoking, counseled. Hospital Course: The patient is a 62-year-old female who came in with shortness of breath. The marianna ent had a recent prolonged flight from [place]. She was tachycardic and tachypneic. She was ruled out for PE. CT scan of the angio chest was done which was negative. Chest x-ray showed some bilater al opacities, interstitial edema, initially thought to have some fluid overload; however, she had sig nificant amount of wheezing, is a heavy smoker for several years and was started on nebulizer treatme nts and steroids. Dr. Melendez with Pulmonology was consulted. The patient did well over the course of the hospital stay. White count remains normal. UA was negative. Blood cultures did not show an y growth. The patient had a repeat chest x-ray done, which showed improvement. The patient was able to be weaned off supplemental oxygen. She was able to ambulate without any desaturation. The patie nt's room air sat showed 88% on room air. The patient was then cleared for discharge from Pulmonolog y standpoint. She was discharged home in a stable condition. Activity: No strenuous activity. Medications: As per medication reconciliation list. Followup: Follow up with primary care physician in 2-3 days. Follow up with grants administrator Dr. Lance bucio in 1 week. Follow up with head and neck surgeon for hypercoagulable workup as patient has strong family h istory of blood clots. Her father and brother both suffering from blood clot with significant morbid ity and mortality. Total time spent discharging patient was 41 minute. Physical Examination: General: Awake, alert, oriented, no acute distress CV: S1, S2. No murmurs. Respiratory: Moving air well bilaterally. Some mild wheezing. Gastrointestinal: Abdomen is soft, nontender, nondistended. Positive bowel sounds. Extremities: No clubbing without cyanosis. Trace pedal edema. Neurologic: Nonfocal. SA/MODL Voice ID: [id number] Report ID: [id number]
== END 2018-01-12 13:55 | disposition home or self-care (01) ==
LOC: ER 11:26 → INTOOBSV 16:20 → ERHOLD 16:20 → 2ND 19:33
PROVIDERS: ADMIT Family Medicine; ATTEND Family Medicine
DX: R06.03 Acute respiratory distress (principal); J44.0 Chronic obstructive pulmonary disease with (acute) lower respiratory infection; J18.9 Pneumonia, unspecified organism; J44.1 Chronic obstructive pulmonary disease with (acute) exacerbation; I45.10 Unspecified right bundle-branch block; E66.01 Morbid (severe) obesity due to excess calories; Z68.42 Body mass index [BMI] 45.0-49.9, adult; E11.9 Type 2 diabetes mellitus without complications; E78.2 Mixed hyperlipidemia; I10 Essential (primary) hypertension; F17.210 Nicotine dependence, cigarettes, uncomplicated; Z98.84 Bariatric surgery status
CPT/HCPCS: 36415 ×2; 71045 ×2; 71275; 80048; 80053 ×2; 81003 ×2; 82962 ×7; 83735 ×2; 83880; 84484; 85025 ×3; 85610; 87040 ×2; 93005; 94640; 94760 ×3; 96374; 99285; G0378 ×2; J0456 ×2; J0696; J1650 ×3; J1940; J2920 ×2; J3475; Q9967; J7512

== ENCOUNTER 2019-01-02 07:52 | Observation (INO) | payer OTHER ==
[2019-01-02] MEDS ORDERED: ASPIRIN 325 MG TAB ONE (08:41)
[2019-01-02 08:57] LABS: Protime INR 0.95
[2019-01-02 09:03] LABS: Absolute Lymphocytes (CBC) 1.9 K/uL (0.7-4.9); Absolute Monocytes 0.5 K/uL (0.1-1.3); Basophils % 0.7 % (0-1.3); Eosinophils % 2.9 % (0-4.4); Hematocrit 34.7 % (36.0-45.0); Lymphocytes % 22.1 % (15.3-44.8); MPV 8.1 fL (7.6-11.3); RBC Red Blood Cell Count 4.08 M/uL (3.86-4.86)
[2019-01-02 09:22] LABS: ALT/SGPT 15 U/L (12-78); AST/SGOT 9 U/L (15-37); Albumin 3.5 g/dL (3.4-5.0); Alkaline Phosphatase 63 U/L (45-117); BUN Blood Urea Nitrogen 16 mg/dL (7-18); Bicarbonate 29 mmol/L (21-32); Bilirubin Direct < 0.1 mg/dL (0-0.2); Bilirubin Total 0.3 mg/dL (0.2-1.0); Glucose Level 115 mg/dL (74-106); Magnesium 1.7 mg/dL (1.8-2.4); NT PRO-BNP 30 pg/mL (<125); Potassium 3.7 mmol/L (3.5-5.1); Protein, Total 7.2 g/dL (6.4-8.2); Sodium Level 138 mmol/L (136-145); Troponin (Emerg Dept Use Only) < 0.02 ng/mL (0.0-0.045)
--- NOTE | 2019-01-02 09:37 | RAD REPORT ---
EXAM DESCRIPTION: RAD - Chest Single View - 01/02/2019 8:46 am CLINICAL HISTORY: CHEST PAIN Chest pain. COMPARISON: Chest Pa And Lat (2 Views) dated 09/24/2018; Chest Single View dated 01/12/2018; Chest Sin gle View dated 01/10/2018; CHEST PA AND LAT 2 VIEW dated 09/29/2010 FINDINGS: Portable technique limits examination quality. The lungs are grossly clear. The heart is mildly prominent size. No displaced fractures. IMPRESSION: No acute intrathoracic process suspected.
--- NOTE | 2019-01-02 09:53 | EDPHYS ---
Physician Documentation [facility] Name: Jackie Menezes Age: 63 yrs Sex: Female : 1955 Arrival Date: 01/02/2019 Time: 07:53 Bed 4 Private MD: Kalen Garcia E ED Physician Osman Jane HPI: 01/02 08:57 This 63 yrs old Female presents to ER via Ambulatory with complaints of Chest pm1 Pain. 14:58 The patient or guardian reports chest pain that is located primarily in the anterior pm1 aspect of left upper chest. Onset: 2 day(s) ago. The pain radiates to jaw. Associated signs and symptoms: Pertinent positives: diaphoresis, nausea, Pertinent negatives: abdominal pain, cough, shortness of breath, vomiting. The chest pain is described as aching. Duration: The patient or guardian reports multiple episodes, that have now resolved, the episodes last approximately 30 minute(s). Modifying factors: The symptoms are alleviated by nothing. the symptoms are aggravated by nothing. Severity of pain: in the emergency department the pain has resolved and did so just prior to arrival. The patient has not experienced similar symptoms in the past. The patient has not recently seen a physician. Historical: - Allergies: 08:16 No Known Allergies; dm5 - Home Meds: 08:16 Seroquel 100 mg Oral tab 1 tab nightly [Active]; Cymbalta oral oral [Active]; Abilify dm5 oral oral [Active]; Lisinopril Oral [Active]; phenofibrate (sp?) [Active]; allegery med [Active]; - PMHx: 08:16 Diabetes - NIDDM; High Cholesterol; Hypertension; Bipolar disorder; Sleep Apnea; CPap; dm5 - PSHx: 08:16 Hysterectomy; Gastric Bypass; dm5 - Ebola Screening: : No symptoms or risks identified at this time. ROS: 14:58 Constitutional: Negative for fever, chills, and weight loss, Eyes: Negative for injury, pm1 pain, redness, and discharge, ENT: Negative for injury, pain, and discharge, Neck: Negative for injury, pain, and swelling. 14:58 Respiratory: Negative for shortness of breath, cough, wheezing, and pleuritic chest pain, Back: Negative for injury and pain, : Negative for injury, bleeding, discharge, and swelling, MS/Extremity: Negative for injury and deformity, Skin: Negative for injury, rash, and discoloration, Neuro: Negative for headache, weakness, numbness, tingling, and seizure. 14:58 Constitutional: 14:58 Cardiovascular: Positive for chest pain, Negative for edema, orthopnea, palpitations. 14:58 Abdomen/GI: Positive for nausea, Negative for abdominal pain, vomiting, diarrhea. Exam: 08:18 ECG: Sinus tachycardia, right bundle branch block, 102 BPM pm1 14:58 Constitutional: This is a well developed, well nourished patient who is awake, alert, pm1 and in no acute distress. Head/Face: Normocephalic, atraumatic. Eyes: Pupils equal round and reactive to light, extra-ocular motions intact. Lids and lashes normal. Conjunctiva and sclera are non-icteric and not injected. Cornea within normal limits. Periorbital areas with no swelling, redness, or edema. ENT: Nares patent. No nasal discharge, no septal abnormalities noted. Tympanic membranes are normal and external auditory canals are clear. Oropharynx with no redness, swelling, or masses, exudates, or evidence of obstruction, uvula midline. Mucous membranes moist. Neck: Trachea midline, no thyromegaly or masses palpated, and no cervical lymphadenopathy. Supple, full range of motion without nuchal rigidity, or vertebral point tenderness. No Meningismus. Chest/axilla: Normal chest wall appearance and motion. Nontender with no deformity. No lesions are appreciated. Cardiovascular: Regular rate and rhythm with a normal S1 and S2. No gallops, murmurs, or rubs. Normal PMI, no JVD. No pulse deficits. Respiratory: Lungs have equal breath sounds bilaterally, clear to auscultation and percussion. No rales, rhonchi or wheezes noted. No increased work of breathing, no retractions or nasal flaring. Abdomen/GI: Soft, non-tender, with normal bowel sounds. No distension or tympany. No guarding or rebound. No evidence of tenderness throughout. Back: No spinal tenderness. No costovertebral tenderness. Full range of motion. Skin: Warm, dry with normal turgor. Normal color with no rashes, no lesions, and no evidence of cellulitis. MS/ Extremity: Pulses equal, no cyanosis. Neurovascular intact. Full, normal range of motion. 14:58 Neuro: Orientation: is normal, Motor: is normal, moves all fours. Vital Signs: 08:16 BP 160 / 99; Pulse 102; Resp 20; Temp 98(O); Pulse Ox 98% on R/A; Weight 144.24 kg; dm5 Height 5 ft. 8 in. (172.72 cm); 09:00 BP 148 / 89; Pulse 98; Resp 16 S; Pulse Ox 96% on R/A; Pain 0/10; aa5 10:20 BP 125 / 82; Pulse 95; Resp 18 S; Pulse Ox 97% on R/A; Pain 0/10; aa5 11:40 BP 130 / 80; Pulse 95; Resp 18 S; Pulse Ox 98% on R/A; Pain 0/10; aa5 08:16 Body Mass Index 48.35 (144.24 kg, 172.72 cm) dm5 MDM: 08:10 Patient medically screened. pm1 09:51 Data reviewed: vital signs. Data interpreted: Pulse oximetry: on room air is 98 %. pm1 Interpretation: normal. Counseling: I had a detailed discussion with the patient and/or guardian regarding: the historical points, exam findings, and any diagnostic results supporting the discharge/admit diagnosis, lab results, radiology results, the need for further work-up and treatment in the hospital. 10:11 Physician consultation: Meaghan Brown MD was called at 10:00, was contacted at 10:11, pm1 regarding admission, patient's condition, and will see patient. 01/02 08:15 Order name: Basic Metabolic Panel pm1 01/02 08:15 Order name: CBC with Diff pm1 01/02 08:15 Order name: LFT's pm1 01/02 08:15 Order name: Magnesium pm1 01/02 08:15 Order name: NT PRO-BNP; Complete Time: 09:27 pm1 01/02 08:15 Order name: PT-INR; Complete Time: 09:11 pm1 01/02 08:15 Order name: Troponin (emerg Dept Use Only); Complete Time: 09:27 pm1 01/02 08:17 Order name: Basic Metabolic Panel; Complete Time: 09:27 EDMS 01/02 08:17 Order name: CBC with Automated Diff EDDE 01/02 08:17 Order name: Liver (Hepatic) Function; Complete Time: 09:27 EDMS 01/02 08:17 Order name: Magnesium; Complete Time: 09:27 EDMS 01/02 09:05 Order name: CBC Smear Scan EDDE 01/02 10:37 Order name: Troponin I EDDE 01/02 10:37 Order name: Troponin I EDDE 01/02 08:15 Order name: XRAY Chest (1 view); Complete Time: 09:44 pm1 01/02 08:15 Order name: EKG; Complete Time: 08:17 pm01/02 08:15 Order name: Cardiac monitoring; Complete Time: 08:25 pm1 01/02 08:15 Order name: EKG - Nurse/Tech; Complete Time: 08:25 pm01/02 08:15 Order name: IV Saline Lock; Complete Time: 08:45 pm01/02 08:15 Order name: Labs collected and sent; Complete Time: 08:45 pm01/02 08:15 Order name: O2 Per Protocol; Complete Time: 08:25 pm01/02 08:15 Order name: O2 Sat Monitoring; Complete Time: 08:25 pm01/02 10:36 Order name: CONS Physician Consult EDDE 01/02 10:36 Order name: Echo with Doppler EDDE 01/02 10:37 Order name: Troponin I [facility] 01/02 10:37 Order name: Troponin I EDDE Administered Medications: 08:20 Drug: Aspirin 325 mg Route: PO; aa5 11:19 Follow up: Response: No adverse reaction aa5 10:15 Drug: Magnesium Sulfate 1 grams Route: IVPB; Infused Over: 1 hrs; Site: left iw antecubital; 11:19 Follow up: Response: No adverse reaction; IV Status: Completed infusion aa5 10:15 Drug: Lovenox 1 mg/kg Route: Sub-Q; Site: left lower abdomen; iw 11:19 Follow up: Response: No adverse reaction aa5 10:15 Drug: Lopressor (metoprolol TARTRATE) 50 mg Route: PO; iw 11:19 Follow up: Response: No adverse reaction aa5 Disposition: 15:03 Co-signature as Attending Physician, Osman Jane MD I agree with the assessment and brisa plan of care. Disposition: 01/02/19 09:53 Hospitalization ordered by Meaghan Brown for Observation. Preliminary diagnosis is Chest pain, unspecified. - Bed requested for Telemetry/MedSurg (observation). - Status is Observation. iw - Condition is Stable. - Problem is new. - Symptoms have improved. UTI on Admission? No Signatures: Dispatcher [employer] EDMS Ela Pendleton, RN RN dm5 Anisa Dexter RN RN Osman Malcolm MD MD cha Williams, Irene RN RN iw Mitzi Ramsey RN RN aa5 Jose Luis Ernandez, ENTRY LEVEL SOFTWARE DEVELOPER ENTRY LEVEL SOFTWARE DEVELOPER pm1 Corrections: (The following items were deleted from the chart) 10:53 09:53 Hospitalization Ordered by Meaghan Brown MD for Observation. Preliminary dw diagnosis is Chest pain, unspecified. Bed requested for Telemetry/MedSurg (observation). Status is Observation. Condition is Stable. Problem is new. Symptoms have improved. UTI on Admission? No. pm1 12:01 10:53 01/02/2019 09:53 Hospitalization Ordered by Meaghan Brown MD for Observation. iw Preliminary diagnosis is Chest pain, unspecified. Bed requested for Telemetry/MedSurg (observation). Status is Observation. Condition is Stable. Problem is new. Symptoms have improved. UTI on Admission? No. dw
--- NOTE | 2019-01-02 09:53 | ER ---
Nurse's Notes [facility] Name: Jackie Menezes Age: 63 yrs Sex: Female : 1955 Arrival Date: 01/02/2019 Time: 07:53 Bed 4 Private MD: Kalen Garcia E Diagnosis: Chest pain, unspecified Presentation: 01/02 08:02 Presenting complaint: Patient states: chest pain "with sweats" that moved to back and dm5 jaw x 3 days. Pain rated at 2/10. pt denies any previous cardiac history. Transition of care: patient was not received from another setting of care. Onset of symptoms was December 30, 2018. Risk Assessment: Do you want to hurt yourself or someone else? Patient reports no desire to harm self or others. Initial Sepsis Screen: Does the patient meet any 2 criteria? No. Patient's initial sepsis screen is negative. Does the patient have a suspected source of infection? No. Patient's initial sepsis screen is negative. Care prior to arrival: None. 08:02 Method Of Arrival: Ambulatory dm5 08:02 Acuity: ROXY 2 dm5 Triage Assessment: 08:17 General: Appears in no apparent distress. Behavior is calm, cooperative. Pain: dm5 Complains of pain in back and chest Pain currently is 2 out of 10 on a pain scale. Pain began 2-3 days ago. Neuro: Level of Consciousness is awake, alert, obeys commands, Oriented to person, place, time, situation. Cardiovascular: Reports chest pain, diaphoresis, Denies nausea, shortness of breath. Respiratory: No deficits noted. Derm: Skin is pink, warm \\T\\ dry. Historical: - Allergies: 08:16 No Known Allergies; dm5 - Home Meds: 08:16 Seroquel 100 mg Oral tab 1 tab nightly [Active]; Cymbalta oral oral [Active]; Abilify dm5 oral oral [Active]; Lisinopril Oral [Active]; phenofibrate (sp?) [Active]; allegery med [Active]; - PMHx: 08:16 Diabetes - NIDDM; High Cholesterol; Hypertension; Bipolar disorder; Sleep Apnea; CPap; dm5 - PSHx: 08:16 Hysterectomy; Gastric Bypass; dm5 - Ebola Screening: : No symptoms or risks identified at this time. Screenin:25 Abuse screen: Denies threats or abuse. Nutritional screening: No deficits noted. aa5 Tuberculosis screening: No symptoms or risk factors identified. Fall Risk None identified. Assessment: 08:25 General: Appears comfortable, Behavior is calm, cooperative. Pain: Complains of pain in aa5 thoracic area and chest Pain radiates to left and right jaw Pain currently is 2 out of 10 on a pain scale. Quality of pain is described as aching, sharp, Pain began 2-3 days ago. Is episodic, lasting 30 minutes. Neuro: Level of Consciousness is awake, alert, obeys commands, Oriented to person, place, time, situation. Cardiovascular: Heart tones S1 S2 present Rhythm is sinus rhythm. Respiratory: Airway is patent Respiratory effort is even, unlabored, Respiratory pattern is regular, symmetrical, Breath sounds are clear bilaterally. Denies shortness of breath. GI: Patient currently denies nausea, vomiting. : No signs and/or symptoms were reported regarding the genitourinary system. EENT: No signs and/or symptoms were reported regarding the EENT system. Derm: Skin is pink, warm \\T\\ dry. Musculoskeletal: Range of motion: intact in all extremities. 10:20 Reassessment: Patient is alert, oriented x 3, equal unlabored respirations, skin aa5 warm/dry/pink. Pt sitting up in bed, denies pain, denies any complaints at this time, pt notified of wait time for room assignment. . 11:19 Reassessment: Patient is alert, oriented x 3, equal unlabored respirations, skin aa5 warm/dry/pink. Pt taken to ECHO . 11:55 Reassessment: Patient is alert, oriented x 3, equal unlabored respirations, skin aa5 warm/dry/pink. Vital Signs: 08:16 BP 160 / 99; Pulse 102; Resp 20; Temp 98(O); Pulse Ox 98% on R/A; Weight 144.24 kg; dm5 Height 5 ft. 8 in. (172.72 cm); 09:00 BP 148 / 89; Pulse 98; Resp 16 S; Pulse Ox 96% on R/A; Pain 0/10; aa5 10:20 BP 125 / 82; Pulse 95; Resp 18 S; Pulse Ox 97% on R/A; Pain 0/10; aa5 11:40 BP 130 / 80; Pulse 95; Resp 18 S; Pulse Ox 98% on R/A; Pain 0/10; aa5 08:16 Body Mass Index 48.35 (144.24 kg, 172.72 cm) dm5 ED Course: 07:53 Patient arrived in ED. mr 07:54 Kalen Garcia MD is Private Physician. mr 08:10 Jose Luis Ernandez, WILLI is PHCP. pm1 08:10 Osman Jane MD is Attending Physician. pm1 08:11 Mitzi Ramsey, RAQUEL is Primary Nurse. aa5 08:12 Triage completed. dm5 08:16 Arm band placed on left wrist. EKG completed in triage. Results shown to MD. dm5 08:25 Patient has correct armband on for positive identification. Placed in gown. Bed in low aa5 position. Call light in reach. Side rails up X2. monitoring coordinator on. Pulse ox on. NIBP on. 08:25 Patient maintains SpO2 saturation greater than 95% on room air. aa5 08:35 Initial lab(s) drawn, by me, sent to lab. Inserted saline lock: 20 gauge in left aa5 antecubital area, using aseptic technique. Blood collected. 08:45 X-ray completed. Portable x-ray completed in exam room. Patient tolerated procedure mh1 well. 08:46 XRAY Chest (1 view) In Process Unspecified. EDMS 09:52 Meaghan Brown MD is Hospitalizing Provider. pm1 11:55 No provider procedures requiring assistance completed. Patient admitted, IV remains in aa5 place. Administered Medications: 08:20 Drug: Aspirin 325 mg Route: PO; aa5 11:19 Follow up: Response: No adverse reaction aa5 10:15 Drug: Magnesium Sulfate 1 grams Route: IVPB; Infused Over: 1 hrs; Site: left iw antecubital; 11:19 Follow up: Response: No adverse reaction; IV Status: Completed infusion aa5 10:15 Drug: Lovenox 1 mg/kg Route: Sub-Q; Site: left lower abdomen; iw 11:19 Follow up: Response: No adverse reaction aa5 10:15 Drug: Lopressor (metoprolol TARTRATE) 50 mg Route: PO; iw 11:19 Follow up: Response: No adverse reaction aa5 Outcome: 09:53 Decision to Hospitalize by Provider. pm1 11:55 Admitted to Tele accompanied by tech, via wheelchair, with chart. aa5 11:55 Condition: stable 11:55 Instructed on the need for admit, Demonstrated understanding of instructions. 12:01 Patient left the ED. iw Signatures: Dispatcher [employer] Ela Ayon, RAQUEL RN dm5 Jackie Tilley Keon Ferre[place] 1 Tara Nath RN RN iw Mitzi Ramsey RN RN aa5 Jose Luis Ernandez, WILLI INFRASTRUCTURE CONSULTANT pm1
[2019-01-02] MEDS ORDERED: MAGNESIUM SULFATE 1 gm IVPB 1 GM/100 ML BAG IV ONE (10:17)
[2019-01-02] MEDS ORDERED: ENOXAPARIN 40 MG/0.4 ML SQ ONE (10:17)
[2019-01-02] MEDS ORDERED: ENOXAPARIN 100 MG/ML SYR SQ ONE (10:17)
[2019-01-02] MEDS ORDERED: METOPROLOL TAR 50 MG TAB ONE (10:17)
[2019-01-02 11:20] LABS: Anisocytosis 1+; Blood Morphology Comment NOTED (NOT SEEN); Platelet Estimate ADEQ; Urine White Blood Cell Casts OK
[2019-01-02] MEDS ORDERED: ONDANSETRON 4 MG/2 ML VIAL IV PRN (11:47)
[2019-01-02] MEDS: INSULIN -REGULAR HUMAN 50 UNIT/0.5 ML ML SQ SCH ×2 (11:47→16:29)
[2019-01-02] MEDS ORDERED: GLUCAGON 1 MG/VIAL IM PRN (13:44)
[2019-01-02] MEDS ORDERED: D50W 25 GM/50 ML SYRINGE IV PRN (13:44)
[2019-01-02] MEDS ORDERED: REGADENOSON 0.4 MG/5 ML SYR IV ONE (14:00)
--- NOTE | 2019-01-02 14:43 | EKG ---
Test Date: 2019-01-02 Test Time: 08:01:52 Simulation Educator: DANETTE MEASUREMENT RESULTS: Intervals: Rate: 102 MO: 134 QRSD: 136 QT: 360 QTc: 469 Keymar: P: 54 MO: 134 QRS: -11 T: 11 INTERPRETIVE STATEMENTS: Sinus tachycardia Right bundle branch block Abnormal ECG Compared to ECG 01/10/2018 15:30:54 Sinus rhythm no longer present Electronically Signed On 01-02-19 14:41:02 CDT by Brian Jean Baptiste
--- NOTE | 2019-01-02 15:49 | RAD REPORT ---
EXAM DESCRIPTION: NM - Rest Stress Cardiac Imaging - 01/02/2019 3:35 pm CLINICAL HISTORY: Chest pain COMPARISON: None. TECHNIQUE: The patient was administered approximately 10 mCi of Tc 99m Sestamibi prior to resting SP ECT imaging of the heart. The patient was then administered approximately 30 mCi of Tc 99m Sestamibi following exercise or pharmacologic stress. Multiplanar SPECT images were reviewed. FINDINGS: The end diastolic volume is 94 ml, the end systolic volume is 54 ml, and the ejection frac tion is 42 %. No stress-induced ischemic changes confirmed. Moderately large fixed defect is present in the anterio r wall mid in apex portion. Moderate-sized fixed defect present in the inferior wall near the base. IMPRESSION: No stress-induced ischemic changes confirmed. Moderate fixed defects in the anterior and inferior wall sore most likely scarring or rather than att enuation artifact. End-diastolic volume is normal at 94 milliliters. Ejection fraction slightly below normal at 42%.
[2019-01-02 16:22] LABS: Urine Appearance CLEAR; Urine Bilirubin NEGATIVE (NEG); Urine Blood NEGATIVE (NEG); Urine Color YELLOW; Urine Glucose NEGATIVE (NEG); Urine Microscopic Reflex NO UMIC; Urine Protein NEGATIVE (NEG); Urine pH 6.5 (5.0-7.0)
--- NOTE | 2019-01-02 17:17 | P.SSS ---
Patient History Date of Service: 01/02/19 Primary Care Provider: Dr Vanegas Reason for admission: Chest pain History of Present Illness: 63-year-old female with significant past medical history of COPD, diabetes and hypertension, tobacco abuse and obesity who presented to the ED complaining of having chest pain x3 days. Patient stated that she was also having some shortness of breath and the pain radiated down to her jaw along with the left arm. Patient described her pain to be sharp and shooting in nature and got worse with position change. Patient stated that she has had similar episodes in the past but they did resolve in since this 1 did resolve she decided to come to the ER. In the ER patient had lab work done along with imaging studies done. Troponin x1 was negative. Patient was referred over to admission for ACS rule out. Allergies No Known Allergies Allergy (Verified 01/02/19 16:26) Home Medications: ARIPiprazole [Abilify*] 2.5 mg PO DAILY 01/10/18 Duloxetine [Cymbalta *] 90 mg PO DAILY 01/10/18 Fenofibrate [Tricor*] 160 mg PO DAILY 01/10/18 Lisinopril [Prinivil*] 20 mg PO DAILY 01/10/18 Loratadine [Allergy Relief] 10 mg PO DAILY 01/10/18 Metformin HCl [Glucophage*] 500 mg PO BID 01/10/18 Quetiapine [Seroquel*] 100 mg PO BEDTIME 01/10/18 Fluticasone/Salmeterol [Advair 250-50 Diskus] 1 each IH BID #60 disk.w.dev 01/12 - Past Medical/Surgical History Has patient received pneumonia vaccine in the past: Yes Diabetic: Yes -: HTN -: HLD -: BIPOLAR -: NIDDM -: Sleep Apnea- Using CPAP -: HYSTERECTOMY -: GASTRIC BYPASS -: CHOLECYSTECTOMY - Family History Father -: Stroke Brother Notes: DVT; Brain aneurysm - Social History Smoking Status: Current every day smoker Alcohol use: No CD- Drugs: No Caffeine use: Yes Place of Residence: Home Review of Systems 10-point ROS is otherwise unremarkable Physical Examination - Vital Signs Temperature: 98.0 F Blood Pressure: 120/60 Pulse: 80 Respirations: 20 Pulse Ox (%): 96 - Physical Exam General: Alert, In no apparent distress, Obese HEENT: Atraumatic, PERRLA, Mucous membr. moist/pink, EOMI, Sclerae nonicteric Neck: Supple, 2+ carotid pulse no bruit, No LAD, Without JVD or thyroid abnormality Respiratory: Clear to auscultation bilaterally, Normal air movement Cardiovascular: Regular rate/rhythm, Normal S1 S2 Gastrointestinal: Normal bowel sounds, No tenderness Musculoskeletal: No tenderness Integumentary: No rashes Neurological: Normal gait, Normal speech, Normal strength at 5/5 x4 extr, Normal tone, Normal affect Lymphatics: No axilla or inguinal lymphadenopathy - Studies Laboratory Data (last 24 hrs) 01/02/19 08:35: PT 11.2, INR 0.95 01/02/19 08:35: WBC 8.7, Hgb 11.3 L, Hct 34.7 L, Plt Count 387 01/02/19 08:35: Sodium 138, Potassium 3.7, BUN 16, Creatinine 0.65, Glucose 115 H, Magnesium 1.7 L, Total Bilirubin 0.3, AST 9 L, ALT 15, Alkaline Phosphatase 63 - Diagnosis (Problem(s)) (1) Chest pain Current Visit: Yes Status: Acute Plan: Chest pain most likely reflux -stress test and echocardiogram done here in the hospital both of which were negative for any acute cardiac event -cardiology consulted who recommended the patient to be discharged home with negative workup Qualifiers: Chest pain type: unspecified Qualified Code(s): R07.9 - Chest pain, unspecified (2) Obesity Current Visit: Yes Status: Chronic Plan: Educated extensively regarding diet and exercise to lower the risk of CAD Qualifiers: Obesity type: due to excess calories - Disposition Disposition: ROUTINE DISCHARGE Condition: GOOD Diet: Regular Activity: Ad socrates
--- NOTE | 2019-01-02 18:02 | TREADPHA ---
DX: CHEST PAIN Date of Study: 01/02/2019 Ht: 5 8 Wt: 318 lb 0 oz Consulting Physician: DR. ZARAGOZA MEDICATIONS: DEXTROSE, LOVENOX, GLUCAGEN, NOVOLIN-R, ZOFRAN HISTORY: 63 YEAR OLD FEMALE WITH COMPLAINTS OF CHEST PAIN. MEDICAL HISTORY OF DIABETES MELLITUS, HYPERTENSION, BIPOLAR, HIGH CHOLESTEROL. PHYSICIAL EXAMINATION: RESTING B.P.: 127/82 RESTING H.R.: 80 RESTING EKG: SINUS RHYTHM, RIGHT BUNDLE BRANCH BLOCK PROTOCOL: LEXISCAN EXERCISE TIME: 3:30 B.P. AT PEAK STRESS: 134/93 IMPRESSION: LEXISCAN INJECTED, CARDIOLITE INJECTED PER PROTOCOL. SEE NUCLEAR MEDICINE REPORT. NO SUPRAVENTRICULAR TACHYCARDIA. NO VENTRICULAR TACHYCARDIA, NO PREMATURE VENTRICULAR COMPLEXES. DENIED CHEST PAIN.
--- NOTE | 2019-01-02 18:03 | ECHO ---
HEIGHT: 5 ft 8 in WEIGHT: 318 lb 0 oz DATE OF STUDY: 01/02/[address]: Meaghan Brown MD 2-DIMENSIONAL: YES M.MODE: YES DOPPLER: YES COLOR FLOW: YES TDS: YES PORTABLE: NO DEFINITY: NO BUBBLE STUDY: NO DIAGNOSIS: CHEST PAIN CARDIAC HISTORY: CATHERIZATION: NO SURGERY: NO PROSTHETIC VALVE: NO PACEMAKER: NO MEASUREMENTS (cm) DIASTOLIC (NORMALS) SYSTOLIC (NORMALS) IVSd 1.1 (0.6-1.2) LA Diam 3.3 (1.9-4.0) LVEF 51% LVIDd 3.3 (3.5-5.7) LVIDs 2.5 (2.0-3.5) %FS 25% LVPWd 1.2 (0.6-1.2) Ao Diam 3.0 (2.0-3.7) 2 DIMENSIONAL ASSESSMENT: RIGHT ATRIUM: NORMAL LEFT ATRIUM: NORMAL RIGHT VENTRICLE: NORMAL LEFT VENTRICLE: NORMAL TRICUSPID VALVE: NORMAL MITRAL VALVE: NORMAL PULMONIC VALVE: NORMAL AORTIC VALVE: NORMAL PERICARDIAL EFFUSION: NONE AORTIC ROOT: NORMAL LEFT VENTRICULAR WALL MOTION: NORMAL. DOPPLER/COLOR FLOW: NORMAL. COMMENTS: NORMAL 2D ECHOCARDIOGRAM WITH DOPPLER. NO WALL MOTION ABNORMALITIES. NO EFFUSION. TECHNOLOGIST: FILIBERTO DOWNS
--- NOTE | 2019-01-02 20:39 | CON ---
Date of Consultation: 01/02/2019 Reason For Consultation: Chest pain History Of Present Illness: Ms. Menezes is a 63-year-old woman who has had no cardiac history in the p ast. She weighs 318 pounds now. She is status post gastric bypass surgery. She has had a history o f sleep apnea. Has had a history of diabetes, hypertension, dyslipidemia, as well as depression. Sh e came in with substernal chest pain that is tightness lasted for anywhere from 2-30 minutes with anabell e diaphoresis with no nausea, vomiting, or shortness of breath. Denied any PND, orthopnea, pedal radha ma, palpitation, or syncope. Past Medical History: As stated above. Allergies: NONE. Review of Systems: Negative. Social History: Negative. Medications: At home include Cymbalta, Abilify, Tricor, Advair, lisinopril, Seroquel and metformin. Physical Examination: General: She is pleasant. Weight 318 pounds. Vital Signs: Stable, afebrile. HEENT: Negative. Neck: Supple without any bruit, lymphadenopathy, JVD, or thyromegaly. Chest: Clear to auscultation and percussion. Cardiac: Revealed a regular rhythm and rate. No murmurs, gallops, or rubs. Abdomen: Obese, but benign. Extremities: Revealed no clubbing, cyanosis, or edema. Diagnostic Data: All within normal limits. Impression And Plan: Fairly worrisome story for chest pain, which is tight. She gets diaphoretic, h owever, is not exertional. Her EKG is normal. Chest x-ray is normal. Her troponin and BNP are norm al. This certainly could be gastroesophageal reflux disease. Did not exertional and did not radiate . An echocardiogram was ordered already and that was read as normal. The Lexiscan is pending, I agr ee with that. Her diabetes is fairly well controlled. Her blood pressure is fairly well controlled. Dyslipidemia is well controlled. We will see what the stress test shows prior to making any final decisions. NB/MODL Voice ID: [id number] Report ID: [id number]
[2019-01-02] MEDS ORDERED: QUETIAPINE 100MG TAB PO SCH (21:00)
[2019-01-03] MEDS ORDERED: FENOFIBRATE 160 MG TAB PO SCH (09:00)
[2019-01-03] MEDS ORDERED: ENOXAPARIN 40 MG/0.4 ML SQ SCH (09:00)
[2019-01-03] MEDS ORDERED: LISINOPRIL 20 MG TAB PO SCH (09:00)
[2019-01-03] MEDS ORDERED: DULOXETINE 30 MG CAP PO SCH (09:00)
[2019-01-03] MEDS ORDERED: ARIPiprazole 5 MG TAB PO SCH (09:00)
== END 2019-01-02 17:56 | disposition home or self-care (01) ==
LOC: ER 07:52 → ERHOLD 10:35 → 4TH 11:49
PROVIDERS: ADMIT Family Medicine; ATTEND Family Medicine
DX: R07.9 Chest pain, unspecified (principal); J44.9 Chronic obstructive pulmonary disease, unspecified; E11.9 Type 2 diabetes mellitus without complications; I10 Essential (primary) hypertension; E66.9 Obesity, unspecified; Z68.42 Body mass index [BMI] 45.0-49.9, adult; G47.30 Sleep apnea, unspecified; F17.210 Nicotine dependence, cigarettes, uncomplicated
CPT/HCPCS: 96365; 93005; 93017; 93306; 85025; 80048; 36415; 83735; 85610; 82962 ×2; 80076; 81003; 84484 ×2; 83880; 71045; 78452; 96372; 99285; J1650 ×2; J3475; J2785; A9500; G0378 ×2

== ENCOUNTER 2019-02-05 10:55 | Emergency (ER) | payer OTHER ==
[2019-02-05 12:36] LABS: Absolute Lymphocytes (CBC) 1.6 K/uL (0.7-4.9); Absolute Monocytes 0.5 K/uL (0.1-1.3); Absolute Neutrophil 3.8 K/uL (1.8-8.0); Basophils % 0.8 % (0-1.3); Eosinophils % 1.8 % (0-4.4); Hematocrit 40.8 % (36.0-45.0); Lymphocytes % 27.2 % (15.3-44.8); MPV 7.6 fL (7.6-11.3); Monocytes % 7.6 % (3.3-12.3); RBC Red Blood Cell Count 4.86 M/uL (3.86-4.86)
[2019-02-05] MEDS ORDERED: NA CHLORIDE 0.9% 1,000 ML ONE (12:37)
[2019-02-05] MEDS ORDERED: ONDANSETRON 4 MG/2 ML VIAL ONE (12:37)
[2019-02-05 12:54] LABS: ALT/SGPT 34 U/L (12-78); AST/SGOT 25 U/L (15-37); Albumin 3.9 g/dL (3.4-5.0); Alkaline Phosphatase 79 U/L (45-117); BUN Blood Urea Nitrogen 12 mg/dL (7-18); Bicarbonate 26 mmol/L (21-32); Bilirubin Direct < 0.1 mg/dL (0-0.2); Bilirubin Total 0.2 mg/dL (0.2-1.0); Glucose Level 110 mg/dL (74-106); Lipase 67 U/L (73-393); Potassium 3.9 mmol/L (3.5-5.1); Protein, Total 8.1 g/dL (6.4-8.2); Sodium Level 140 mmol/L (136-145)
--- NOTE | 2019-02-05 14:21 | RAD REPORT ---
EXAM DESCRIPTION: CT - Abdomen Pelvis W Contrast - 02/05/2019 2:08 pm CLINICAL HISTORY: Abdominal pain, constipation COMPARISON: CT chest December 2017. TECHNIQUE: Biphasic, helical CT imaging of the abdomen and pelvis was performed following 100 ml non -ionic IV contrast. No oral contrast administered. All CT scans are performed using dose optimization technique as appropriate and may include automated exposure control or mA/KV adjustment according to patient size. FINDINGS: No suspicious findings in the lung bases. Liver size is normal. Mild diffuse fatty infiltration is present with no focal liver lesion. No splen omegaly or focal splenic process. Fat is infiltrated in the pancreatic parenchymal volume loss. No so lid or cystic pancreatic mass or peripancreatic abnormality. Cholecystectomy clips are present. No bi liary tree dilatation. Symmetric renal function is seen with no hydronephrosis or suspicious renal mass. No pyelonephritis o r acute parenchymal process. No bladder abnormalities. Right adrenal gland is normal. Nodularity suyapa g the superior aspect left adrenal gland has not changed from the 2018 CT study No dilated bowel loops or bowel wall thickening. No free air, free fluid or inflammatory stranding. No mass or bulky lymphadenopathy. A 6 centimeter periumbilical hernia is present. Neck is 4 cm. This contains only fat. No suspicious bony findings. IMPRESSION: Contrast enhanced CT abdomen and pelvis showing no significant or suspicious finding. No acute GI process seen. No abnormal stool volume in the colon. Nonacute findings detailed in the body of the report.
[2019-02-05 14:49] LABS: Urine Blood NEGATIVE (NEG); Urine Glucose NEGATIVE (NEG); Urine Protein TRACE (NEG); Urine Specific Gravity 1.015 (1.005-1.030); Urine pH 5.5 (5.0-7.0)
[2019-02-05 14:51] LABS: Urine RBC NONE SEEN /HPF (NONE SEEN)
[2019-02-05 14:52] LABS: Urine Bacteria <20 /HPF (<20); Urine Culture Reflex Order NOT NEEDED
--- NOTE | 2019-02-05 15:05 | EDPHYS ---
Physician Documentation [facility] Name: Jackie Menezes Age: 63 yrs Sex: Female : 1955 Arrival Date: 02/05/2019 Time: 10:59 Bed 13 Private MD: Kalen Garcia E ED Physician Osman Jane HPI: 02/05 12:20 This 63 yrs old Female presents to ER via Ambulatory with complaints of cp Constipation. 12:20 The patient presents with abdominal pain that is diffuse. Onset: The symptoms/episode cp began/occurred 2 week(s) ago. 12:20 Associated signs and symptoms: Pertinent positives: constipation, Pertinent negatives: cp nausea and vomiting, blood in stools, chest pain, diarrhea, dysuria, fever, hematuria. Severity of pain: in the emergency department the pain is unchanged despite home interventions. The patient has been recently seen by a physician: the patient's primary care provider, with similar presenting complaints, given lactulose. Historical: - Allergies: 11:09 No Known Allergies; ss - Home Meds: 12:09 lisinopril Oral [Active]; allegery med [Active]; Cymbalta Oral [Active]; Seroquel 100 tw2 mg Oral tab 1 tab nightly [Active]; Abilify Oral [Active]; phenofibrate (sp?) [Active]; - PMHx: 11:09 Bipolar disorder; CPAP; High Cholesterol; Diabetes - NIDDM; Hypertension; Sleep Apnea; ss - PSHx: 11:09 Hysterectomy; Gastric Bypass; ss - Immunization history:: Adult Immunizations up to date. - Social history:: Smoking status: Patient/guardian denies using tobacco. - Ebola Screening: : Patient negative for fever greater than or equal to 101.5 degrees Fahrenheit, and additional compatible Ebola Virus Disease symptoms Patient denies exposure to infectious person Patient denies travel to an Ebola-affected area in the 21 days before illness onset No symptoms or risks identified at this time. ROS: 12:25 Constitutional: Negative for body aches, chills, fever, poor PO intake. cp 12:25 Eyes: Negative for injury, pain, redness, and discharge. cp 12:25 ENT: Negative for drainage from ear(s), ear pain, sore throat, difficulty swallowing, difficulty handling secretions. 12:25 Cardiovascular: Negative for chest pain, palpitations. 12:25 Respiratory: Negative for cough, shortness of breath, wheezing. 12:25 Abdomen/GI: Positive for abdominal pain, constipation, Negative for vomiting, diarrhea, anorexia, black/tarry stool, rectal bleeding. 12:25 Back: Negative for pain at rest, pain with movement. 12:25 : Negative for urinary symptoms. 12:25 Skin: Negative for cellulitis, rash. 12:25 Neuro: Negative for altered mental status, headache, weakness. 12:25 All other systems are negative. Exam: 12:33 Constitutional: The patient appears in no acute distress, alert, awake, non-toxic, well cp developed, well nourished. 12:33 Head/Face: Normocephalic, atraumatic. cp 12:33 Eyes: Periorbital structures: appear normal, Conjunctiva: normal, no exudate, no injection, Sclera: no appreciated abnormality, Lids and lashes: appear normal, bilaterally. 12:33 ENT: External ear(s): are unremarkable, Nose: is normal, Mouth: is normal, Posterior pharynx: is normal, airway is patent, no erythema, no exudate. 12:33 Chest/axilla: Inspection: normal, Palpation: is normal, no crepitus, no tenderness. 12:33 Cardiovascular: Rate: normal, Rhythm: regular, Edema: is not appreciated, JVD: is not appreciated. 12:33 Respiratory: the patient does not display signs of respiratory distress, Respirations: normal, no use of accessory muscles, no retractions, no splinting, no tachypnea, labored breathing, is not present, Breath sounds: are clear throughout, no decreased breath sounds, no stridor, no wheezing. 12:33 Abdomen/GI: Inspection: obese Bowel sounds: active, all quadrants, Palpation: soft, in all quadrants, mild abdominal tenderness, in all quadrants, rebound tenderness, is not appreciated, voluntary guarding, is not appreciated, involuntary guarding, is not appreciated. 12:33 Back: pain, is absent, ROM is normal. 12:33 Skin: no rash present. 14:45 : Rectal exam: Rectal tone: normal, Stool: brown, Guaiac testing: results were cp negative for occult blood, negative for fecal impaction. Vital Signs: 11:12 BP 142 / 87; Pulse 98; Resp 19; Temp 98.7; Pulse Ox 100% on R/A; Weight 127.01 kg (R); ss Height 5 ft. 8 in. (172.72 cm); Pain 6/10; 12:34 BP 132 / 94; Pulse 93; Resp 17; Pulse Ox 96% on R/A; tw2 11:12 Body Mass Index 42.57 (127.01 kg, 172.72 cm) ss MDM: 11:55 Patient medically screened. cp 15:00 Data reviewed: vital signs, nurses notes, lab test result(s), radiologic studies, CT cp scan. 15:00 Differential diagnosis: bowel obstruction, non-specific abd pain, pancreatitis, urinary cp tract infection, constipation, fecal impaction. Counseling: I had a detailed discussion with the patient and/or guardian regarding: the historical points, exam findings, and any diagnostic results supporting the discharge/admit diagnosis, lab results, radiology results, to return to the emergency department if symptoms worsen or persist or if there are any questions or concerns that arise at home. ED course: VSS. CT abdomen negative for acute findings. Will discharge to home for continued monitoring. 02/05 12:16 Order name: Basic Metabolic Panel cp 02/05 12:16 Order name: CBC with Diff cp 02/05 12:16 Order name: Creatinine for Radiology; Complete Time: 13:32 cp 02/05 12:16 Order name: Hepatic Function; Complete Time: 13:32 cp 02/05 14:58 Interpretation: Normal except: GLOB 4.2; A/G 0.9. cp 02/05 12:16 Order name: Lipase; Complete Time: 13:32 cp 02/05 14:58 Interpretation: LIP 67; Reviewed. cp 02/05 12:16 Order name: Urine Microscopic Only; Complete Time: 14:58 cp 02/05 12:16 Order name: IV Saline Lock; Complete Time: 12:34 cp 02/05 12:16 Order name: CT Abd/Pelvis - PO and IV Contrast; Complete Time: 14:25 cp 02/05 12:17 Order name: Basic Metabolic Panel; Complete Time: 13:32 EDMS 02/05 14:26 Interpretation: Normal except: GLUC 110; GFR 72. cp 02/05 12:17 Order name: CBC with Automated Diff; Complete Time: 13:32 EDMS 02/05 14:58 Interpretation: Normal except: RDW 16.7. 02/05 14:33 Order name: Urine Dipstick--Ancillary (enter results); Complete Time: 14:58 ms 02/05 14:58 Interpretation: Reviewed. 02/05 12:16 Order name: Labs collected and sent; Complete Time: 12:34 cp 02/05 12:16 Order name: Urine Dipstick-Ancillary (obtain specimen); Complete Time: 15:32 cp Administered Medications: 12:30 Drug: NS 0.9% 500 ml Route: IV; Rate: bolus; Site: right antecubital; tw2 12:32 Drug: Zofran 4 mg Route: IVP; Site: right antecubital; tw2 13:15 Follow up: Response: No adverse reaction; Nausea is decreased 13:05 Drug: NS 0.9% 500 ml Route: IV; Rate: 125 ml/hr; Site: right antecubital; tw2 Disposition: 02/05/19 15:04 Discharged to Home. Impression: Unspecified abdominal pain. - Condition is Stable. - Discharge Instructions: Abdominal Pain, Adult, Constipation, Adult. - Prescriptions for Miralax 17 gram/dose Oral - take 1 packet by ORAL route once daily As needed dilute powder in 8 ounces of water or juice; 20 packet. - Medication Reconciliation Form, Thank You Letter, Antibiotic Education, Prescription Opioid Use form. - Follow up: Kalen Kerns MD; When: 2 - 3 days; Reason: Recheck today's complaints. - Problem is new. - Symptoms have improved. Addendum: 02/09/2019 09:01 Co-signature as Attending Physician, Osman Jane MD I agree with the assessment and c mishra plan of care. Signatures: Dispatcher [employer] EDVT Jorge Bell RN RN sg Anderson, Corey, MD MD cha Smirch, Shelby RN RN Osman Linder PA PA cp Wise, Tara, RN RN tw2 Corrections: (The following items were deleted from the chart) 02/05 15:32 15:04 02/05/2019 15:04 Discharged to Home. Impression: Unspecified abdominal pain. sg Condition is Stable. Forms are Medication Reconciliation Form, Thank You Letter, Antibiotic Education, Prescription Opioid Use. Follow up: Kalen Kerns; When: 2 - 3 days; Reason: Recheck today's complaints. Problem is new. Symptoms have improved. cp
--- NOTE | 2019-02-05 15:05 | ER ---
Nurse's Notes [facility] Name: Jackie Menezes Age: 63 yrs Sex: Female : 1955 Arrival Date: 02/05/2019 Time: 10:59 Bed 13 Private MD: Kalen Garcia E Diagnosis: Unspecified abdominal pain Presentation: 02/05 11:14 Presenting complaint: Patient states: I havent had a BM for the last two weeks, was ss seen by my PCP and prescribed Lactulose and a stool softener, was told if the medication did not work in the next 36 hours to come to the ER for evaluation. Transition of care: patient was not received from another setting of care. Onset of symptoms was February 05, 2019. Risk Assessment: Do you want to hurt yourself or someone else? Patient reports no desire to harm self or others. Initial Sepsis Screen: Does the patient meet any 2 criteria? No. Patient's initial sepsis screen is negative. Does the patient have a suspected source of infection? No. Patient's initial sepsis screen is negative. Care prior to arrival: None. 11:14 Method Of Arrival: Ambulatory ss 11:14 Acuity: ROXY 3 ss Triage Assessment: 12:07 General: Appears in no apparent distress. Behavior is calm, cooperative, appropriate tw2 for age. Pain: Complains of pain in abdomen. GI: Reports constipation. Historical: - Allergies: 11:09 No Known Allergies; ss - Home Meds: 12:09 lisinopril Oral [Active]; allegery med [Active]; Cymbalta Oral [Active]; Seroquel 100 tw2 mg Oral tab 1 tab nightly [Active]; Abilify Oral [Active]; phenofibrate (sp?) [Active]; - PMHx: 11:09 Bipolar disorder; CPAP; High Cholesterol; Diabetes - NIDDM; Hypertension; Sleep Apnea; ss - PSHx: 11:09 Hysterectomy; Gastric Bypass; ss - Immunization history:: Adult Immunizations up to date. - Social history:: Smoking status: Patient/guardian denies using tobacco. - Ebola Screening: : Patient negative for fever greater than or equal to 101.5 degrees Fahrenheit, and additional compatible Ebola Virus Disease symptoms Patient denies exposure to infectious person Patient denies travel to an Ebola-affected area in the 21 days before illness onset No symptoms or risks identified at this time. Screenin:08 Abuse screen: Denies threats or abuse. Nutritional screening: No deficits noted. tw2 Tuberculosis screening: No symptoms or risk factors identified. Fall Risk None identified. Assessment: 11:50 General: Appears in no apparent distress. obese, Behavior is calm, cooperative, tw2 appropriate for age. Neuro: Level of Consciousness is awake, alert, obeys commands, Oriented to person, place, time, situation. Cardiovascular: Heart tones S1 S2 Patient's skin is warm and dry. Respiratory: Airway is patent Respiratory effort is even, unlabored, Respiratory pattern is regular, symmetrical, Breath sounds are clear bilaterally. GI: Abdomen is round non-distended, obese, Bowel sounds present X 4 quads. Abd is soft X 4 quads. GI: Patient currently denies constipation. : No signs and/or symptoms were reported regarding the genitourinary system. EENT: No signs and/or symptoms were reported regarding the EENT system. Derm: No signs and/or symptoms reported regarding the dermatologic system. Musculoskeletal: Range of motion: intact in all extremities. 12:34 Reassessment: Patient appears in no apparent distress at this time. No changes from tw2 previously documented assessment. Patient and/or family updated on plan of care and expected duration. Pain level reassessed. Patient is alert, oriented x 3, equal unlabored respirations, skin warm/dry/pink. 13:10 Reassessment: Patient appears in no apparent distress at this time. Patient is alert, sg oriented x 3, equal unlabored respirations, skin warm/dry/pink. CT called and notified that pt finished PO contrast at 1240 today. Vital Signs: 11:12 BP 142 / 87; Pulse 98; Resp 19; Temp 98.7; Pulse Ox 100% on R/A; Weight 127.01 kg (R); ss Height 5 ft. 8 in. (172.72 cm); Pain 6/10; 12:34 BP 132 / 94; Pulse 93; Resp 17; Pulse Ox 96% on R/A; tw2 11:12 Body Mass Index 42.57 (127.01 kg, 172.72 cm) ED Course: 10:59 Patient arrived in ED. rg4 11:00 Kalen Garcia MD is Private Physician. rg4 11:09 Arm band placed on. ss 11:15 Triage completed. ss 11:46 [facility] Feng [facility]. cp 11:46 Osman Jane MD is Attending Physician. cp 11:48 Bed in low position. Call light in reach. babbitt spinner on. Pulse ox on. NIBP on. tw2 12:07 Roula Hobbs RN is Primary Nurse. tw2 12:28 Inserted saline lock: 22 gauge in right antecubital area, using aseptic technique. tw2 Blood collected. 13:07 Report given to RAQUEL Patel. tw2 13:08 IV discontinued, intact, bleeding controlled, No redness/swelling at site. Pressure tw2 dressing applied, to RIGHT ac, infiltration noted. 13:22 Primary Nurse role handed off by Roula Hobbs RN 13:22 Jorge Bell RN is Primary Nurse. sg 13:[address] Scan. sg 14:09 CT Abd/Pelvis - PO and IV Contrast In Process Unspecified. EDMS 15:02 Kalen Kerns MD is Referral Physician. cp Administered Medications: 12:30 Drug: NS 0.9% 500 ml Route: IV; Rate: bolus; Site: right antecubital; tw2 12:32 Drug: Zofran 4 mg Route: IVP; Site: right antecubital; tw2 13:15 Follow up: Response: No adverse reaction; Nausea is decreased sg 13:05 Drug: NS 0.9% 500 ml Route: IV; Rate: 125 ml/hr; Site: right antecubital; tw2 Outcome: 15:04 Discharge ordered by MD. cp 15:32 Patient left the ED. sg Signatures: Dispatcher [employer] EDMS Jorge Bell RN RN Jasmin Miller RN RN Osman Feng PA PA cp Roula Hobbs RN RN tw2 Marsha Lockwood rg4
== END 2019-02-05 15:32 | disposition home or self-care (01) ==
LOC: ER 10:55
DX: R10.9 Unspecified abdominal pain (principal); K59.00 Constipation, unspecified; F31.9 Bipolar disorder, unspecified; E78.00 Pure hypercholesterolemia, unspecified; E11.9 Type 2 diabetes mellitus without complications; I10 Essential (primary) hypertension
CPT/HCPCS: 85025; 80048; 36415; 80076; 83690; 74177; 96374; 99284; Q9967; J7030; J2405; 81003; 81015

== ENCOUNTER 2020-11-07 13:38 | Emergency (ER) | payer OTHER ==
--- OUTSIDE RECORDS SUMMARY | 2020-11-07 13:41 | XMS REPORT | Continuity of Care Document ---
:1955 Author Organization [facility] t Address [address] [place] [address] Care Team Providers Name Role Phone Unavailable Unavailable Unavailable Problems This patient has no known problems. Allergies, Adverse Reactions, Alerts This patient has no known allergies or adverse reactions. Medications Ordered Filled Start Stop Current Ordering Indication Dosage Frequency Signature Comments Components Source Medication Medication Date Date Medication? Clinician (SIG) Name Name Kiley Cao Yes Yrn not [facility] Lisinopril Lisinopril Yes Yrn not [facility] Fenofibrate Fenofibrate Yes Yrn not [facility] Procedures This patient has no known procedures. Encounters Start End Encounter Admission Attending Care Care Encounter Source Date/Time Date/Time Type Type Clinicians Facility Department ID 2020-09-22 2020-09-22 Outpatient [facility] [id number] [facility] 2020-06-23 2020-06-23 Outpatient [facility] [id number] [facility] 2020-04-26 2020-04-26 [facility] [id number] [facility] 08[facility] 08[facility]22[facility] 2020-04-15 2020-04-15 [facility] [id number] [facility] 10[facility]08[facility]00 10:08:00 [facility] 2020-04-13 2020-04-13 Outpatient Margaret Juares [id number] [facility] 10:[facility] 10:00:00 [facility] Results This patient has no known results.
[2020-11-07 14:12] LABS: Absolute Lymphocytes (CBC) 2.4 K/uL (0.7-4.9); Basophils % 0.7 % (0-1.3); Hematocrit 35.8 % (36.0-45.0); Lymphocytes % 25.1 % (15.3-44.8); MPV 7.5 fL (7.6-11.3); RBC Red Blood Cell Count 4.04 M/uL (3.86-4.86)
[2020-11-07 14:21] LABS: Protime INR 0.94
--- NOTE | 2020-11-07 14:28 | RAD REPORT ---
EXAM DESCRIPTION: CT - Chest For Pe Angio - 11/07/2020 2:08 pm CLINICAL HISTORY: sob COMPARISON: 2017 TECHNIQUE: Dynamically enhanced axial 3 mm thick images of the chest were obtained during administra tion of <100> mL Isovue 370 IV contrast. Coronal and oblique reconstruction images were generated and reviewed. Exam utilizes a protocol for optimal evaluation of pulmonary arterial tree. Maximum intensity projections 3D imaging was utilized All CT scans are performed using dose optimization technique as appropriate and may include automated exposure control or mA/KV adjustment according to patient size. FINDINGS: The opacification of pulmonary arteries is somewhat suboptimal. A pulmonary embolus is not seen. A thoracic aortic aneurysm is not noted. A pleural effusion is not seen. A pericardial effusion is not seen. A lung consolidation is not present. Small left adrenal mass unchanged probably an adenoma IMPRESSION: No gross evidence of a pulmonary embolism
[2020-11-07 14:31] LABS: ALT/SGPT 23 U/L (12-78); AST/SGOT 17 U/L (15-37); Albumin 3.7 g/dL (3.4-5.0); Alkaline Phosphatase 70 U/L (45-117); BUN Blood Urea Nitrogen 24 mg/dL (7-18); Bicarbonate 28 mmol/L (21-32); Bilirubin Direct < 0.1 mg/dL (0-0.2); Bilirubin Total 0.2 mg/dL (0.2-1.0); Glucose Level 102 mg/dL (74-106); Magnesium 2.1 mg/dL (1.8-2.4); NT PRO-BNP 28 pg/mL (<125); Potassium 4.3 mmol/L (3.5-5.1); Protein, Total 7.5 g/dL (6.4-8.2); Sodium Level 139 mmol/L (136-145); Troponin (Emerg Dept Use Only) < 0.02 ng/mL (0.0-0.045)
[2020-11-07] MEDS ORDERED: NA CHLORIDE 0.9% 1,000 ML ONE (14:53)
[2020-11-07] MEDS ORDERED: FAMOTIDINE 20 MG/2 ML VIAL IV ONE (14:53)
--- NOTE | 2020-11-07 15:00 | ER ---
Nurse's Notes [facility] Name: Jackie Menezes Age: 65 yrs Sex: Female : 1955 Arrival Date: 11/07/2020 Time: 13:34 Bed 25 Private MD: Diagnosis: Acute embolism and thrombosis of other specified deep vein of right lower extremity;Type 2 diabetes mellitus;Obesity, unspecified Presentation: 11/07 13:37 Chief complaint: Patient states: had a knot on back of right calf X 5 days, her Pa sent iw her for US, positive for DVT. Coronavirus screen: At this time, the client does not indicate any symptoms associated with coronavirus-19. Ebola Screen: Patient negative for fever greater than or equal to 101.5 degrees Fahrenheit, and additional compatible Ebola Virus Disease symptoms Patient denies exposure to infectious person. Patient denies travel to an Ebola-affected area in the 21 days before illness onset. No symptoms or risks identified at this time. Initial Sepsis Screen: Does the patient meet any 2 criteria? No. Patient's initial sepsis screen is negative. Does the patient have a suspected source of infection? No. Patient's initial sepsis screen is negative. Risk Assessment: Do you want to hurt yourself or someone else? Patient reports no desire to harm self or others. 13:37 Method Of Arrival: Wheelchair iw 13:37 Acuity: ROXY 3 iw 13:39 Onset of symptoms was November 02, 2020. iw Historical: - Allergies: 13:44 No Known Allergies; iw - Home Meds: 13:44 fenofibrate oral oral once daily [Active]; Lisinopril Oral once daily [Active]; iw Cymbalta oral oral once daily [Active]; Bupropion Oral [Active]; - PMHx: 13:44 Bipolar disorder; CPAP; Diabetes - NIDDM; High Cholesterol; Hypertension; Sleep Apnea; iw - PSHx: 13:44 Hysterectomy; Gastric Bypass; iw - Immunization history:: Adult Immunizations up to date, Client reports receiving the 2nd dose of the Covid vaccine. - Social history:: Smoking status: Patient reports the use of cigarette tobacco products, smokes one pack cigarettes per day. - Family history:: not pertinent. Screenin:27 Abuse screen: Denies threats or abuse. Denies injuries from another. Nutritional zb screening: No deficits noted. Tuberculosis screening: No symptoms or risk factors identified. Fall Risk None identified. Assessment: 14:00 General: Appears in no apparent distress. comfortable, Behavior is calm, cooperative, zb appropriate for age. Pain: Complains of pain in right calf Pain does not radiate. Quality of pain is described as tender. Neuro: Level of Consciousness is awake, alert, obeys commands, Oriented to person, place, time, situation. Cardiovascular: Capillary refill < 3 seconds in bilateral fingers Patient's skin is warm and dry. Pulses are all present. Edema is 1+ to right leg. Respiratory: Airway is patent Respiratory effort is even, unlabored, Breath sounds are clear bilaterally. Respiratory: Denies cough, shortness of breath at rest. GI: Abdomen is obese. : No signs and/or symptoms were reported regarding the genitourinary system. EENT: No signs and/or symptoms were reported regarding the EENT system. Derm: Skin is intact, is healthy with good turgor, Skin is dry, Skin is normal. Musculoskeletal: Range of motion: intact in all extremities. 15:22 Reassessment: d/c pending ECP, patient not ready to discharge yet. zb Vital Signs: 13:30 BP 109 / 66; Pulse 97; Resp 16; Pulse Ox 100% on R/A; zb 13:40 BP 109 / 66; Pulse 100; Resp 18 S; Pulse Ox 99% on R/A; Weight 133.81 kg; Height 5 ft. iw 8 in. (172.72 cm); 14:30 BP 130 / 84; Pulse 93; Resp 17; Pulse Ox 100% on R/A; zb 15:25 BP 122 / 93; Pulse 96; Resp 16; Pulse Ox 99% on R/A; zb 16:00 BP 132 / 65; Pulse 98; Resp 16; Pulse Ox 100% on R/A; zb 13:40 Body Mass Index 44.85 (133.81 kg, 172.72 cm) iw ED Course: 13:34 Patient arrived in ED. iw 13:35 Osman Jane MD is Attending Physician. brisa 13:38 Triage completed. iw 13:39 Angella Carreno RN is Primary Nurse. zb 13:44 Arm band placed on. iw 13:50 Patient has correct armband on for positive identification. vehicle monitor technician on. Pulse zb ox on. NIBP on. 14:01 Initial lab(s) drawn, by me, sent to lab. Inserted saline lock: 20 gauge in left sr5 antecubital area, using aseptic technique. Blood collected. 14:08 CT Chest For PE Angio In Process Unspecified. EDMS 14:30 EKG done, by ED staff, reviewed by Osman Jane MD. zb 14:51 XRAY Chest (1 view) In Process Unspecified. EDMS 14:58 Tyrone Bejarano MD is Referral Physician. brisa 16:30 No provider procedures requiring assistance completed. IV discontinued, intact, zb bleeding controlled, No redness/swelling at site. Pressure dressing applied. Administered Medications: 13:58 CANCELLED (Duplicate Order): Lovenox 1 mg/kg Sub-Q once brisa 14:38 Drug: NS 0.9% 1000 ml Route: IV; Rate: 125 ml/hr; Site: left antecubital; zb 16:45 Follow up: Response: No adverse reaction; IV Status: Completed infusion; IV Intake: zb 375ml 14:38 Drug: Pepcid 20 mg Route: IVP; Site: left antecubital; zb 15:21 Follow up: Response: No adverse reaction zb 15:21 Drug: Eliquis (apixaban) 10 mg Route: PO; zb 16:00 Follow up: Response: No adverse reaction zb 15:21 Drug: Aspirin 162 mg Route: PO; zb 16:00 Follow up: Response: No adverse reaction zb Intake: 16:45 IV: 375ml; Total: 375ml. zb Outcome: 14:59 Discharge ordered by . brisa 16:30 Discharged to home via wheelchair. zb 16:30 Condition: stable 16:30 Discharge instructions given to patient, Instructed on discharge instructions, follow up and referral plans. medication usage, Demonstrated understanding of instructions, follow-up care, medications, Prescriptions given X 3. 16:37 Patient left the ED. zb Signatures: Dispatcher [employer] Osman Perez MD MD cha Williams, Irene, RN RN iw Resecker, Sam, RN RN srAngella Worthy RN RN zmike
--- NOTE | 2020-11-07 15:01 | EDPHYS ---
Physician Documentation [facility] Name: Jackie Menezes Age: 65 yrs Sex: Female : 1955 Arrival Date: 11/07/2020 Time: 13:34 Bed 25 Private MD: Osman Calderon HPI: 11/07 14:38 This 65 yrs old Female presents to ER via Wheelchair with complaints of Leg brisa Pain. 14:38 The patient presents with pain, swelling. The complaints affect the right calf. brisa Context: The problem was sustained at an unknown site. Onset: The symptoms/episode began/occurred 2 day(s) ago. Modifying factors: The symptoms are alleviated by nothing. the symptoms are aggravated by movement, weight bearing. Associated signs and symptoms: The patient has no apparent associated signs or symptoms. Treatment prior to arrival includes: no previous treatment. Severity of symptoms: At their worst the symptoms were mild, moderate, in the emergency department the symptoms are unchanged. The patient has not experienced similar symptoms in the past. Historical: - Allergies: 13:44 No Known Allergies; iw - Home Meds: 13:44 fenofibrate oral oral once daily [Active]; Lisinopril Oral once daily [Active]; iw Cymbalta oral oral once daily [Active]; Bupropion Oral [Active]; - PMHx: 13:44 Bipolar disorder; CPAP; Diabetes - NIDDM; High Cholesterol; Hypertension; Sleep Apnea; iw - PSHx: 13:44 Hysterectomy; Gastric Bypass; iw - Immunization history:: Adult Immunizations up to date, Client reports receiving the 2nd dose of the Covid vaccine. - Social history:: Smoking status: Patient reports the use of cigarette tobacco products, smokes one pack cigarettes per day. - Family history:: not pertinent. ROS: 14:38 Constitutional: Negative for fever, chills, and weight loss, Eyes: Negative for injury, brisa pain, redness, and discharge, ENT: Negative for injury, pain, and discharge, Neck: Negative for injury, pain, and swelling, Cardiovascular: Negative for chest pain, palpitations, and edema, Respiratory: Negative for shortness of breath, cough, wheezing, and pleuritic chest pain, Abdomen/GI: Negative for abdominal pain, nausea, vomiting, diarrhea, and constipation, Back: Negative for injury and pain, : Negative for injury, bleeding, discharge, and swelling, Skin: Negative for injury, rash, and discoloration, Neuro: Negative for headache, weakness, numbness, tingling, and seizure, Psych: Negative for depression, anxiety, suicide ideation, homicidal ideation, and hallucinations, Allergy/Immunology: Negative for hives, rash, and allergies, Endocrine: Negative for neck swelling, polydipsia, polyuria, polyphagia, and marked weight changes, Hematologic/Lymphatic: Negative for swollen nodes, abnormal bleeding, and unusual bruising. 14:38 MS/extremity: Positive for decreased range of motion, pain, swelling, of the right calf. Exam: 14:38 Constitutional: This is a well developed, well nourished patient who is awake, alert, brisa and in no acute distress. Head/Face: Normocephalic, atraumatic. Eyes: Pupils equal round and reactive to light, extra-ocular motions intact. Lids and lashes normal. Conjunctiva and sclera are non-icteric and not injected. Cornea within normal limits. Periorbital areas with no swelling, redness, or edema. ENT: Nares patent. No nasal discharge, no septal abnormalities noted. Tympanic membranes are normal and external auditory canals are clear. Oropharynx with no redness, swelling, or masses, exudates, or evidence of obstruction, uvula midline. Mucous membranes moist. Neck: Trachea midline, no thyromegaly or masses palpated, and no cervical lymphadenopathy. Supple, full range of motion without nuchal rigidity, or vertebral point tenderness. No Meningismus. Chest/axilla: Normal chest wall appearance and motion. Nontender with no deformity. No lesions are appreciated. Cardiovascular: Regular rate and rhythm with a normal S1 and S2. No gallops, murmurs, or rubs. Normal PMI, no JVD. No pulse deficits. Respiratory: Lungs have equal breath sounds bilaterally, clear to auscultation and percussion. No rales, rhonchi or wheezes noted. No increased work of breathing, no retractions or nasal flaring. Abdomen/GI: Soft, non-tender, with normal bowel sounds. No distension or tympany. No guarding or rebound. No evidence of tenderness throughout. Back: No spinal tenderness. No costovertebral tenderness. Full range of motion. Female : Normal external genitalia. Skin: Warm, dry with normal turgor. Normal color with no rashes, no lesions, and no evidence of cellulitis. Neuro: Awake and alert, GCS 15, oriented to person, place, time, and situation. Cranial nerves II-XII grossly intact. Motor strength 5/5 in all extremities. Sensory grossly intact. Cerebellar exam normal. Normal gait. Psych: Awake, alert, with orientation to person, place and time. Behavior, mood, and affect are within normal limits. 14:38 Musculoskeletal/extremity: Extremities: noted in the right calf: decreased ROM, pain, ROM: intact in all extremities, Circulation is intact in all extremities. Sensation intact. Compartment Syndrome exam of affected extremity: is normal. DVT Exam: no swelling, negative Homans' sign noted on exam, no appreciated bluish discoloration, no erythema, no increased warmth, pain, tenderness. 14:50 ECG was reviewed by the Attending Physician. [facility] Vital Signs: 13:30 BP 109 / 66; Pulse 97; Resp 16; Pulse Ox 100% on R/A; zb 13:40 BP 109 / 66; Pulse 100; Resp 18 S; Pulse Ox 99% on R/A; Weight 133.81 kg; Height 5 ft. iw 8 in. (172.72 cm); 14:30 BP 130 / 84; Pulse 93; Resp 17; Pulse Ox 100% on R/A; zb 15:25 BP 122 / 93; Pulse 96; Resp 16; Pulse Ox 99% on R/A; zb 16:00 BP 132 / 65; Pulse 98; Resp 16; Pulse Ox 100% on R/A; zb 13:40 Body Mass Index 44.85 (133.81 kg, 172.72 cm) iw MDM: 13:35 Patient medically screened. [facility] 14:50 Differential diagnosis: contusion, tendonitis. Data reviewed: vital signs, nurses brisa notes, lab test result(s), EKG, radiologic studies, CT scan, plain films. Data interpreted: scorekeeper: rate is 100 beats/min, rhythm is regular, Pulse oximetry: on room air is 99 %. Test interpretation: by ED physician or midlevel provider: ECG, plain radiologic studies. Counseling: I had a detailed discussion with the patient and/or guardian regarding: the historical points, exam findings, and any diagnostic results supporting the discharge/admit diagnosis, lab results. 15:03 Physician consultation: Tyrone Bejarano MD and will see patient in office, this week. [facility] 11/07 13:39 Order name: Basic Metabolic Panel; Complete Time: 14:56 [facility] 11/07 13:39 Order name: CBC with Diff; Complete Time: 14:56 [facility] 11/07 13:39 Order name: LFT's; Complete Time: 14:56 [facility] 11/07 13:39 Order name: Magnesium; Complete Time: 14:56 [facility] 11/07 13:39 Order name: NT PRO-BNP; Complete Time: 14:56 11/07 13:39 Order name: PT-INR; Complete Time: 14:56 [facility] 11/07 13:39 Order name: Troponin (emerg Dept Use Only); Complete Time: 14:56 [facility] 11/07 13:39 Order name: XRAY Chest (1 view) 11/07 13:39 Order name: COVID-19 : Document "Date of Symptom Onset" if Symptomatic. [facility] 11/07 13:39 Order name: CT Chest For PE Angio; Complete Time: 14:56 [facility] 11/07 13:39 Order name: EKG; Complete Time: 13:40 11/07 13:39 Order name: Cardiac monitoring; Complete Time: 15:28 [facility] 11/07 13:39 Order name: EKG - Nurse/Tech; Complete Time: 15:28 [facility] 11/07 13:39 Order name: IV Saline Lock; Complete Time: 14:02 [facility] 11/07 13:39 Order name: Labs collected and sent; Complete Time: 14:02 [facility] 11/07 13:39 Order name: O2 Per Protocol; Complete Time: 14:21 [facility] 11/07 13:39 Order name: O2 Sat Monitoring; Complete Time: 14:21 [facility] EC:50 Rate is 95 beats/min. Rhythm is regular. QRS [place] is Normal. GA interval is normal. QRS brisa interval is normal. QT interval is normal. No Q waves. No ST changes noted. Clinical impression: NSR w/ Non-specific ST/T Changes and No evidence of ischemia. Interpreted by me. Reviewed by me. Administered Medications: 13:58 CANCELLED (Duplicate Order): Lovenox 1 mg/kg Sub-Q once brisa 14:38 Drug: NS 0.9% 1000 ml Route: IV; Rate: 125 ml/hr; Site: left antecubital; zb 16:45 Follow up: Response: No adverse reaction; IV Status: Completed infusion; IV Intake: zb 375ml 14:38 Drug: Pepcid 20 mg Route: IVP; Site: left antecubital; zb 15:21 Follow up: Response: No adverse reaction zb 15:21 Drug: Eliquis (apixaban) 10 mg Route: PO; zb 16:00 Follow up: Response: No adverse reaction zb 15:21 Drug: Aspirin 162 mg Route: PO; zb 16:00 Follow up: Response: No adverse reaction zb Disposition: 11/07/20 14:59 Discharged to Home. Impression: Acute embolism and thrombosis of other specified deep vein of right lower extremity, Type 2 diabetes mellitus, Obesity, unspecified. - Condition is Stable. - Discharge Instructions: Deep Vein Thrombosis, Obesity, Adult, Obesity, Adult, [id number], Type 2 Diabetes Mellitus, Self Care, Adult, Type 2 Diabetes Mellitus, Self Care, Adult, [id number]. - Prescriptions for Eliquis 5 mg Oral tablet - take 1 tablet by ORAL route 2 times per day; 60 tablet. Eliquis 5 mg Oral tablet - take 2 tablet by ORAL route 2 times per day; 26 tablet. Pepcid 20 mg Oral Tablet - take 1 tablet by ORAL route every 12 hours for 10 days; 20 tablet. - Medication Reconciliation Form, Thank You Letter, Antibiotic Education, Prescription Opioid Use form. - Follow up: Private Physician; When: 2 - 3 days; Reason: Recheck today's complaints, Continuance of care, Re-evaluation by your physician. Follow up: Tyrone Bejarano MD; When: 2 - 3 days; Reason: Recheck today's complaints, Re-evaluation by your physician. - Problem is new. - Symptoms have improved. Signatures: Dispatcher [employer] EDOsman Alva MD MD cha Williams, Irene, RN RN iw Brown, Zipporah, RN RN lucio Corrections: (The following items were deleted from the chart) 13:58 13:39 Lovenox 1 mg/kg Sub-Q once ordered. brisa ledezma 16:37 14:59 11/07/2020 14:59 Discharged to Home. Impression: Acute embolism and thrombosis of zb other specified deep vein of right lower extremity; Type 2 diabetes mellitus; Obesity, unspecified. Condition is Stable. Forms are Medication Reconciliation Form, Thank You Letter, Antibiotic Education, Prescription Opioid Use. Follow up: Private Physician; When: 2 - 3 days; Reason: Recheck today's complaints, Continuance of care, Re-evaluation by your physician. Follow up: Tyrone Bejarano; When: 2 - 3 days; Reason: Recheck today's complaints, Re-evaluation by your physician. Problem is new. Symptoms have improved. brisa
[2020-11-07] MEDS ORDERED: ASPIRIN EC 81 MG TAB PO ONE (15:34)
[2020-11-07] MEDS ORDERED: APIXABAN 5 MG TABLET ONE (15:34)
--- NOTE | 2020-11-07 17:47 | RAD REPORT ---
EXAM DESCRIPTION: RAD - Chest Single View - 11/07/2020 2:52 pm CLINICAL HISTORY: COUGH, DVT on ultrasound same date COMPARISON: Portable December 2018 TECHNIQUE: AP portable chest image was obtained 11/07/2020 2:52 pm . FINDINGS: No pulmonary edema seen. No peripheral mass, consolidation sufficient for pulmonary hemorr marlon. Interstitial pattern is prominent, possibly slightly increased over comparison. A minimal inter stitial edema or infiltrate would be possible though the patient apparently has no acute respiratory symptoms. Heart size is upper normal. Vasculature within normal limits. No measurable pleural effusio n and no pneumothorax. No acute bony abnormality seen. No acute aortic findings suspected. IMPRESSION: No mass, consolidation or pulmonary hemorrhage. Slight increase of the baseline interstitial pattern which could be a minimal interstitial edema or i nfiltrate.
[2020-11-07 23:09] VITALS: BP 122/93; O2SAT 99
--- NOTE | 2020-11-09 04:38 | EKG ---
Test Date: 2020-11-07 Test Time: 13:27:45 Flight Kitchen Manager: YEMI MEASUREMENT RESULTS: Intervals: Rate: 95 OH: 144 QRSD: 138 QT: 374 QTc: 469 [place]: P: 73 OH: 144 QRS: 30 T: 47 INTERPRETIVE STATEMENTS: Normal sinus rhythm Right bundle branch block Abnormal ECG Compared to ECG 01/02/2019 08:01:52 Sinus tachycardia no longer present Electronically Signed On 11-09-20 04:32:51 CDT by Brian Jean Baptiste
== END 2020-11-07 16:37 | disposition home or self-care (01) ==
LOC: ER 13:38
DX: I82.401 Acute embolism and thrombosis of unspecified deep veins of right lower extremity (principal); E11.9 Type 2 diabetes mellitus without complications; E66.9 Obesity, unspecified; Z68.41 Body mass index [BMI] 40.0-44.9, adult; Z20.822 Contact with and (suspected) exposure to COVID-19; F17.210 Nicotine dependence, cigarettes, uncomplicated; F31.9 Bipolar disorder, unspecified; E78.00 Pure hypercholesterolemia, unspecified; I10 Essential (primary) hypertension; G47.30 Sleep apnea, unspecified; Z98.84 Bariatric surgery status
CPT/HCPCS: 93005; 85025; 80048; 36415; 83735; 85610; 82565; 80076; 84484; 83880; 71275; 71045; Q9967; J7030; 93971; 96361; 96374; 99285